=== PATIENT | male | born 1960 | race African-American/Black ===

== ENCOUNTER 2018-10-27 20:02 | Inpatient (IN) | payer OTHER ==
[2018-10-27] MEDS ORDERED: NA CHLORIDE 0.9% 1,000 ML ONE (20:39)
[2018-10-27] MEDS ORDERED: CEFTRIAXONE/SWI 1gm 1 GM/10 ML SYR ONE (20:52)
[2018-10-27 21:05] LABS: Urine Blood 2+ (NEG); Urine Glucose NEGATIVE (NEG); Urine Protein TRACE (NEG)
[2018-10-27 21:12] LABS: Absolute Monocytes 1.3 K/uL (0.1-1.3); Absolute Neutrophil 8.2 K/uL (1.8-8.0); Basophils % 0.1 % (0-1.3); Eosinophils % 0.3 % (0-4.4); Hematocrit 44.2 % (39.6-49.0); Lymphocytes % 48.3 % (15.3-44.8); MPV 9.4 fL (7.6-11.3); Monocytes % 7.1 % (3.3-12.3); RBC Red Blood Cell Count 4.84 M/uL (4.33-5.43)
[2018-10-27] MEDS ORDERED: THIAMINE 200 MG/2 ML INJ ONE (21:14)
[2018-10-27 21:20] LABS: Barbiturates NEGATIVE (NEGATIVE); Benzodiazepines NEGATIVE (NEGATIVE); Cocaine NEGATIVE (NEGATIVE); METHAMPHETAM NEGATIVE (NEGATIVE); Methadone NEGATIVE (NEGATIVE); Opiates NEGATIVE (NEGATIVE); Phencyclidine NEGATIVE (NEGATIVE); THC Cannibis NEGATIVE (NEGATIVE)
[2018-10-27 21:30] LABS: Protime INR 1.02
[2018-10-27] MEDS ORDERED: IPRATROPIUM BROM 0.5MG/2.5ML ONE (21:34)
[2018-10-27] MEDS ORDERED: ALBUTEROL 2.5 MG/3 ML NEB SOL ONE (21:34)
[2018-10-27] MEDS ORDERED: FAMOTIDINE 20 MG/2 ML VIAL IV ONE (21:34)
[2018-10-27] MEDS ORDERED: METHYLPREDNISOLONE 125 MG INJ ONE (21:34)
--- NOTE | 2018-10-27 21:54 | RAD REPORT ---
EXAM DESCRIPTION: CT - Head C Spine Cap Wo Con - 10/27/2018 9:16 pm TECHNIQUE: Computed axial tomography of the head and cervical spine was obtained. Coronal and sagitt al reconstruction was performed Computed axial tomography of the chest, abdomen and pelvis was obtained. Contrast was not requested. All CT scans are performed using dose optimization technique as appropriate and may include automated exposure control or mA/KV adjustment according to patient size. CLINICAL HISTORY: Head and neck injury with chest and abdominal pain status post fall COMPARISON: None FINDINGS: An intracranial bleed is not seen. The ventricles are normal in caliber. An extra-axial fluid collection is not noted. . Fluid within the sinuses/mastoids is not seen. A cervical fracture is not seen. No dislocation is noted. The evaluation of mediastinum, celestino, vessels, solid organs and bowel are limited secondary to the lac k of contrast administration. A mediastinal hematoma is not noted. A pleural effusion is not seen. A lung contusion is not present. A 9 millimeter right upper lobe opacity abuts the pleura. 5 millimeter left lung nodule is partially calcified probably representing a granuloma. Old fracture involves the right posterior twelfth rib The liver,spleen, pancreas,kidneys and bladder do not demonstrate a traumatic injury. 3 centimeter left adrenal mass contains areas of increased density. Right kidney is absent. Rhoades catheter is present within the bladder 11 millimeter right thyroid nodule IMPRESSION: 1. No acute intracranial abnormality is seen. 2. A cervical fracture is not visualized. If the patient continues have symptoms to suggest intracran ial/spinal cord pathology MRI be recommended 3. No traumatic abnormality involving the chest 4. 3 centimeter left adrenal mass contains areas of increased density. This could represent hemorrhag e, an adenoma or less likely malignancy. MRI of the adrenal glands is recommended 5. 9 millimeter right upper lobe opacity probably either represents scarring. A mass is less likely. A followup unenhanced CT chest in 3 months is recommended to assess stability 6. 11 millimeter right thyroid nodule
--- NOTE | 2018-10-27 21:56 | RAD REPORT ---
EXAM DESCRIPTION: Ar Single View10/27/2018 9:01 pm CLINICAL HISTORY: Cough COMPARISON: none FINDINGS: Calcified granulomas present left lung. Lungs are hyperaerated. The lungs appear clear of acute infiltrate. The heart is normal size IMPRESSION: No acute abnormalities displayed
[2018-10-27 21:57] LABS: Blood Morphology Comment NOT SEEN (NOT SEEN); Platelet Estimate ADEQ
[2018-10-27 22:05] LABS: ALT/SGPT 16 U/L (12-78); AST/SGOT 4 U/L (15-37); Albumin 3.9 g/dL (3.4-5.0); Alkaline Phosphatase 102 U/L (45-117); BUN Blood Urea Nitrogen 203 mg/dL (7-18); Bicarbonate 15 mmol/L (21-32); Bilirubin Direct 0.2 mg/dL (0-0.2); Bilirubin Total 0.5 mg/dL (0.2-1.0); Glucose Level 108 mg/dL (74-106); Lipase 451 U/L (73-393); Magnesium 3.4 mg/dL (1.8-2.4); NT PRO-BNP 240 pg/mL (<125); Potassium 5.5 mmol/L (3.5-5.1); Protein, Total 8.1 g/dL (6.4-8.2); Sodium Level 122 mmol/L (136-145); Troponin (Emerg Dept Use Only) < 0.02 ng/mL (0.0-0.045)
--- NOTE | 2018-10-27 22:17 | ER ---
Nurse's Notes [facility] Name: Flex Hopkins Jr Age: 58 yrs Sex: Male : 1960 Arrival Date: 10/27/2018 Time: 20:06 Bed 3 Private MD: Diagnosis: Acute kidney failure;Hypo-osmolality and hyponatremia;Hyperkalemia;Chronic obstructive pulmonary disease, unspecified;Fever, unspecified Presentation: 10/27 20:24 Presenting complaint: Patient states: "I'm having a hard time breathing. I am also jd3 feeling dizzy for 3 days now. I fell yesterday and hit my head. I also had a 101 fever yesterday morning with chills.". Transition of care: patient was not received from another setting of care. Onset of symptoms was October 24, 2018. Risk Assessment: Do you want to hurt yourself or someone else? Patient reports no desire to harm self or others. Initial Sepsis Screen: Does the patient meet any 2 criteria? RR > 20 per min. Systolic BP < 90 mmHg. Does the patient have a suspected source of infection? No. Patient's initial sepsis screen is negative. Care prior to arrival: None. 20:24 Method Of Arrival: Wheelchair jd3 20:24 Acuity: ROSALBA 2 jd3 Historical: - Allergies: 20:30 Ritalin; jd3 - Home Meds: 20:30 Lisinopril Oral [Active]; Metformin Oral [Active]; jd3 - PMHx: 20:30 Hypertension; Diabetes - NIDDM; jd3 - PSHx: 20:30 Lithotripsy; jd3 - Immunization history:: Adult Immunizations unknown. - Social history:: Smoking status: Patient uses tobacco products, denies chronic smoking, but will smoke occasionally. - Ebola Screening: : Patient negative for fever greater than or equal to 101.5 degrees Fahrenheit, and additional compatible Ebola Virus Disease symptoms. Screenin/09 00:45 Abuse screen: Denies threats or abuse. Denies injuries from another. Nutritional tl1 screening: No deficits noted. Tuberculosis screening: No symptoms or risk factors identified. Fall Risk IV access (20 points). Assessment: 10/27 21:54 General: Appears in no apparent distress. Behavior is calm, cooperative, appropriate tl1 for age. Pain: Complains of pain in generalized. Neuro: Level of Consciousness is awake, alert, obeys commands, Oriented to person, place, time, situation, Moves all extremities. Cardiovascular: Denies chest pain. Respiratory: Airway is patent Trachea midline Respiratory effort is even, unlabored, Breath sounds are clear bilaterally. Respiratory: Reports shortness of breath at rest cough that is. GI: Abdomen is non-distended, Bowel sounds present X 4 quads. Abd is soft and non tender X 4 quads. : No signs and/or symptoms were reported regarding the genitourinary system. EENT: No signs and/or symptoms were reported regarding the EENT system. Derm: No signs and/or symptoms reported regarding the dermatologic system. Vital Signs: 20:30 BP 84 / 56; Pulse 83; Resp 22 S; Temp 97.5(O); Pulse Ox 98% on R/A; Weight 81.65 kg jd3 (R); Height 6 ft. 1 in. (185.42 cm) (R); Pain 8/10; 21:09 BP 91 / 68; Pulse 73; Resp 16; Pulse Ox 100% ; tl1 21:53 BP 94 / 54; Pulse 72; Resp 22; Pulse Ox 100% on R/A; Pain 0/10; tl1 23:00 BP 96 / 56; Pulse 94; Resp 20; Temp 98.3(O); Pulse Ox 100% on R/A; lp1 23:43 BP 100 / 55; Pulse 88; Resp 14; Pulse Ox 100% on R/A; Pain 0/10; tl1 10/28 00:41 BP 102 / 58; Pulse 99; Resp 17; Temp 98.3; Pulse Ox 99% on R/A; Pain 0/10; tl1 01:31 BP 102 / 59; Pulse 83; Resp 17; Pulse Ox 98% on R/A; Pain 0/10; tl1 10/27 20:30 Body Mass Index 23.75 (81.65 kg, 185.42 cm) jd3 ED Course: 10/27 20:06 Patient arrived in ED. al2 20:28 Triage completed. jd3 20:30 Regan Gonsales MD is Attending Physician. landy 20:30 Missed attempt(s): 20 gauge in right antecubital area. ca1 20:33 Arm band placed on. EKG completed in triage. Results shown to . jd3 20:33 Patient has correct armband on for positive identification. Placed in gown. Bed in low tl1 position. Call light in reach. Side rails up X2. Adult w/ patient. athletic monitor on. Pulse ox on. NIBP on. Warm blanket given. 20:35 Inserted saline lock: 20 gauge in left antecubital area, using aseptic technique. Blood lp1 collected. By MYRNA Salinas tech. 20:45 Missed attempt(s): 20 gauge in right forearm. lp1 20:[address] via stretcher. sj 20:48 Rhoades cath inserted, using sterile technique, 16 Fr., returned dayanara urine. Patient ca1 tolerated well. 20:50 Inserted saline lock: 22 gauge in right antecubital area, using aseptic technique. lp1 Blood collected. By BRISEIDA Ibrahim. 20:58 X-ray completed. Portable x-ray completed in exam room. Patient tolerated procedure bb2 well. 20:59 XRAY Chest (1 view) In Process Unspecified. EDMS 21:16 CT Traumagram (Head C Spine CAP wo con) In Process Unspecified. EDMS 21:18 CT completed. Patient tolerated procedure well. Patient moved back from MS. wy 21:22 Alexandria Crowley RN is Primary Nurse. tl1 22:13 Shruthi Mistry MD is Hospitalizing Provider. [facility] 10/28 00:48 No provider procedures requiring assistance completed. Patient admitted, IV remains in tl1 place. Administered Medications: Discontinued: NS 0.9% 1000 ml IV at 125 ml/hr continuous 10/27 20:40 Drug: NS 0.9% 1000 ml Route: IV; Rate: 1 bolus; Site: left antecubital; tl1 22:31 Follow up: IV Status: Completed infusion; IV Intake: 1000ml lp1 20:54 Drug: Rocephin - (cefTRIAXone) 1 grams Route: IVPB; Infused Over: 30 mins; Site: left tl1 antecubital; 23:50 Follow up: IV Status: Completed infusion tl1 21:05 Drug: Thiamine 100 mg Route: IV; Rate: bolus; Site: left antecubital; tl1 21:10 Follow up: IV Status: Completed infusion tl1 21:31 Drug: Pepcid 20 mg Route: IVP; Infused Over: 2 mins; Site: left antecubital; tl1 22:32 Follow up: Response: No adverse reaction lp1 21:32 Drug: SOLU-Medrol 125 mg Route: IVP; Infused Over: 2 mins; Site: left antecubital; tl1 22:31 Follow up: Response: No adverse reaction lp1 21:32 Drug: Albuterol - atroVENT (3:1) (2.5 mg - 0.5 mg) 3 ml Route: Nebulizer; tl1 22:32 Follow up: Response: No adverse reaction lp1 22:36 Drug: Zosyn 2.25 grams Route: IVPB; Infused Over: 60 mins; Site: right antecubital; tl1 23:09 Follow up: IV Status: Completed infusion lp1 22:37 Drug: NS 0.9% 1000 ml Route: IV; Rate: 125 ml/hr; Site: right antecubital; 1 10/28 02:03 Follow up: IV Status: Completed infusion [facility] 10/27 23:17 Drug: NS 0.45 % 1000 ml Route: IV; Rate: 100 ml/hr; Site: right antecubital; [facility] 10/28 00:49 Follow up: IV Status: Infusion continued upon admission [facility] 10/27 23:18 Not Given (unavailable): Kayexalate 30 grams PO once 1 Intake: 22:31 IV: 1000ml; Total: 1000ml. [facility] Outcome: 22:16 Decision to Hospitalize by Provider. [facility] 10/28 00:48 Admitted to Tele accompanied by nurse, via stretcher, with chart, Report called to tl1 Kandis GOINS Condition: stable Instructed on the need for admit. 02:02 Patient left the ED. 1 Signatures: Dispatcher [employer] EDRegan Murillo MD MD cha Jones, Susan sj Pena, Laura, RN RN lp1 Alexandria Crowley RN RN tl1 Car Esteves Jonathon, RN RN Randa Talbert Angelica al2 Acob, Cheryl RN RN ca1
--- NOTE | 2018-10-27 22:18 | EDPHYS ---
Physician Documentation [facility] Name: Flex Hopkins Jr Age: 58 yrs Sex: Male : 1960 Arrival Date: 10/27/2018 Time: 20:06 Bed 3 Private MD: ED Physician Regan Gonsales HPI: 10/27 20:34 This 58 yrs old Black Male presents to ER via Wheelchair with complaints of Fall landy Injury, Dizziness. 20:34 Details of fall: The patient fell from an upright position. Onset: The symptoms/episode landy began/occurred 1 day(s) ago. Associated injuries: The patient sustained unknown, pt is altered. Severity of symptoms: At their worst the symptoms were mild, moderate, in the emergency department the symptoms are unchanged. The patient has not experienced similar symptoms in the past. Historical: - Allergies: 20:30 Ritalin; jd3 - Home Meds: 20:30 Lisinopril Oral [Active]; Metformin Oral [Active]; jd3 - PMHx: 20:30 Hypertension; Diabetes - NIDDM; jd3 - PSHx: 20:30 Lithotripsy; jd3 - Immunization history:: Adult Immunizations unknown. - Social history:: Smoking status: Patient uses tobacco products, denies chronic smoking, but will smoke occasionally. - Ebola Screening: : Patient negative for fever greater than or equal to 101.5 degrees Fahrenheit, and additional compatible Ebola Virus Disease symptoms. ROS: 20:35 Eyes: Negative for injury, pain, redness, and discharge, ENT: Negative for injury, landy pain, and discharge, Neck: Negative for injury, pain, and swelling, Cardiovascular: Negative for chest pain, palpitations, and edema, Abdomen/GI: Negative for abdominal pain, nausea, vomiting, diarrhea, and constipation, Back: Negative for injury and pain, : Negative for injury, bleeding, discharge, and swelling, MS/Extremity: Negative for injury and deformity, Skin: Negative for injury, rash, and discoloration, Psych: Negative for depression, anxiety, suicide ideation, homicidal ideation, and hallucinations, Allergy/Immunology: Negative for hives, rash, and allergies, Endocrine: Negative for neck swelling, polydipsia, polyuria, polyphagia, and marked weight changes, Hematologic/Lymphatic: Negative for swollen nodes, abnormal bleeding, and unusual bruising. 20:35 Constitutional: Positive for body aches, malaise, poor PO intake. 20:35 Respiratory: Positive for shortness of breath. 20:35 Neuro: Positive for altered mental status, weakness. Exam: 20:35 Head/Face: Normocephalic, atraumatic. Eyes: Pupils equal round and reactive to light, landy extra-ocular motions intact. Lids and lashes normal. Conjunctiva and sclera are non-icteric and not injected. Cornea within normal limits. Periorbital areas with no swelling, redness, or edema. ENT: Nares patent. No nasal discharge, no septal abnormalities noted. Tympanic membranes are normal and external auditory canals are clear. Oropharynx with no redness, swelling, or masses, exudates, or evidence of obstruction, uvula midline. Mucous membranes moist. Neck: Trachea midline, no thyromegaly or masses palpated, and no cervical lymphadenopathy. Supple, full range of motion without nuchal rigidity, or vertebral point tenderness. No Meningismus. Chest/axilla: Normal chest wall appearance and motion. Nontender with no deformity. No lesions are appreciated. Cardiovascular: Regular rate and rhythm with a normal S1 and S2. No gallops, murmurs, or rubs. Normal PMI, no JVD. No pulse deficits. Respiratory: Lungs have equal breath sounds bilaterally, clear to auscultation and percussion. No rales, rhonchi or wheezes noted. No increased work of breathing, no retractions or nasal flaring. Abdomen/GI: Soft, non-tender, with normal bowel sounds. No distension or tympany. No guarding or rebound. No evidence of tenderness throughout. Back: No spinal tenderness. No costovertebral tenderness. Full range of motion. Skin: Warm, dry with normal turgor. Normal color with no rashes, no lesions, and no evidence of cellulitis. MS/ Extremity: Pulses equal, no cyanosis. Neurovascular intact. Full, normal range of motion. Psych: Awake, alert, with orientation to person, place and time. Behavior, mood, and affect are within normal limits. 20:35 Constitutional: The patient appears in obvious distress, mildly distressed, moderately distressed. 20:35 Respiratory: the patient does not display signs of respiratory distress, Respirations: normal, no acute changes, Breath sounds: are clear throughout, Respiratory rate: 22 21:39 Musculoskeletal/extremity: ROM: no acute changes, intact in all extremities, full landy active range of motion, full passive range of motion, Circulation is intact in all extremities. Pulses: are normal with no appreciated deficits, Sensation intact. Compartment Syndrome exam of affected extremity: is normal. DVT Exam: no pain, no swelling, no tenderness, negative Homans' sign noted on exam, no appreciated bluish discoloration, no erythema, no increased warmth. Vital Signs: 20:30 BP 84 / 56; Pulse 83; Resp 22 S; Temp 97.5(O); Pulse Ox 98% on R/A; Weight 81.65 kg jd3 (R); Height 6 ft. 1 in. (185.42 cm) (R); Pain 8/10; 21:09 BP 91 / 68; Pulse 73; Resp 16; Pulse Ox 100% ; tl1 21:53 BP 94 / 54; Pulse 72; Resp 22; Pulse Ox 100% on R/A; Pain 0/10; tl1 23:00 BP 96 / 56; Pulse 94; Resp 20; Temp 98.3(O); Pulse Ox 100% on R/A; lp1 23:43 BP 100 / 55; Pulse 88; Resp 14; Pulse Ox 100% on R/A; Pain 0/10; tl1 10/28 00:41 BP 102 / 58; Pulse 99; Resp 17; Temp 98.3; Pulse Ox 99% on R/A; Pain 0/10; tl1 01:31 BP 102 / 59; Pulse 83; Resp 17; Pulse Ox 98% on R/A; Pain 0/10; tl1 10/27 20:30 Body Mass Index 23.75 (81.65 kg, 185.42 cm) jd3 MDM: 10/27 20:30 Patient medically screened. [facility] 20:36 Data reviewed: vital signs, nurses notes, lab test result(s), EKG, radiologic studies, [facility] CT scan, plain films. 10/27 20:33 Order name: Basic Metabolic Panel; Complete Time: 22:49 [facility] 10/27 20:33 Order name: CBC with Diff; Complete Time: 22:49 [facility] 10/27 20:33 Order name: LFT's; Complete Time: 22:49 [facility] 10/27 20:33 Order name: Magnesium; Complete Time: 22:49 [facility] 10/27 20:33 Order name: NT PRO-BNP; Complete Time: 22:49 [facility] 10/27 20:33 Order name: PT-INR; Complete Time: 22:49 [facility] 10/27 20:33 Order name: Troponin (emerg Dept Use Only); Complete Time: 22:49 [facility] 10/27 20:33 Order name: Lipase; Complete Time: 22:49 [facility] 10/27 20:33 Order name: Blood Culture Adult (2) [facility] 10/27 20:33 Order name: Procalcitonin; Complete Time: 21:43 [facility] 10/27 20:33 Order name: Urine Culture [facility] 10/27 20:33 Order name: UDS; Complete Time: 21:24 [facility] 10/27 20:34 Order name: Lactate; Complete Time: 21:38 [facility] 10/27 20:37 Order name: ABG [facility] 10/27 21:00 Order name: Urine Dipstick--Ancillary (enter results) ar5 10/27 21:54 Order name: Manual Differential; Complete Time: 22:49 [facility] 10/27 22:12 Order name: Urine Osmolality [facility] 10/27 22:12 Order name: Urine Sodium Random; Complete Time: 22:49 [facility] 10/27 22:12 Order name: Osmolality, Serum [facility] 10/27 22:12 Order name: Urine Potassium Random; Complete Time: 22:49 [facility] 10/27 22:12 Order name: Uric Acid; Complete Time: 22:49 [facility] 10/27 22:17 Order name: CK; Complete Time: 22:49 [facility] 10/27 22:17 Order name: Ckmb; Complete Time: 22:49 [facility] 10/27 22:28 Order name: Cortisol [facility] 10/27 22:28 Order name: Hepatitis B Surface Antibody [facility] 10/27 22:28 Order name: Hepatitis B Surface Ab,Quant [facility] 10/27 22:28 Order name: Hep B Surface AG w/ Confirm [facility] 10/27 22:28 Order name: Hepatitis B Core Ab, Total [facility] 10/27 22:28 Order name: Hepatitis C RNA, Quant (PCR) [facility] 10/27 22:28 Order name: UR POTASSIUM [facility] 10/27 20:33 Order name: XRAY Chest (1 view); Complete Time: 22:02 [facility] 10/27 20:33 Order name: EKG; Complete Time: 20:44 [facility] 10/27 20:33 Order name: Cardiac monitoring; Complete Time: 20:40 [facility] 10/27 20:33 Order name: EKG - Nurse/Tech; Complete Time: 20:40 [facility] 10/27 20:33 Order name: IV Saline Lock; Complete Time: 20:41 [facility] 10/27 20:33 Order name: Labs collected and sent; Complete Time: 20:41 [facility] 10/27 20:33 Order name: O2 Per Protocol; Complete Time: 20:41 [facility] 10/27 20:33 Order name: O2 Sat Monitoring; Complete Time: 21:06 [facility] 10/27 20:33 Order name: Urine Dipstick-Ancillary (obtain specimen); Complete Time: 21:05 [facility] 10/27 20:33 Order name: CT Traumagram (Head C Spine CAP wo con); Complete Time: 22:02 [facility] 10/27 22:28 Order name: UR SODIUM [facility] 10/27 22:28 Order name: Osmolality, Urine [facility] 10/27 22:28 Order name: Ur Protein [facility] 10/27 22:28 Order name: PTH Intact [facility] 10/27 22:28 Order name: Thyroid Stimulating Hormone [facility] 10/27 22:28 Order name: Urinalysis [facility] 10/27 22:28 Order name: Renal Panel [facility] 10/27 22:28 Order name: Renal Panel [facility] 10/27 22:28 Order name: Renal Panel [facility] 10/27 22:29 Order name: Renal Panel [facility] 10/27 22:29 Order name: Renal Panel [facility] 10/27 22:29 Order name: Renal Panel [facility] 10/27 20:33 Order name: Rhoades; Complete Time: 21:05 [facility] 10/27 20:34 Order name: IV Saline Lock - Large Bore; Complete Time: 20:40 [facility] Administered Medications: Discontinued: NS 0.9% 1000 ml IV at 125 ml/hr continuous 20:40 Drug: NS 0.9% 1000 ml Route: IV; Rate: 1 bolus; Site: left antecubital; tl1 22:31 Follow up: IV Status: Completed infusion; IV Intake: 1000ml lp1 20:54 Drug: Rocephin - (cefTRIAXone) 1 grams Route: IVPB; Infused Over: 30 mins; Site: left tl1 antecubital; 23:50 Follow up: IV Status: Completed infusion tl1 21:05 Drug: Thiamine 100 mg Route: IV; Rate: bolus; Site: left antecubital; tl1 21:10 Follow up: IV Status: Completed infusion tl1 21:31 Drug: Pepcid 20 mg Route: IVP; Infused Over: 2 mins; Site: left antecubital; tl1 22:32 Follow up: Response: No adverse reaction lp1 21:32 Drug: SOLU-Medrol 125 mg Route: IVP; Infused Over: 2 mins; Site: left antecubital; tl1 22:31 Follow up: Response: No adverse reaction lp1 21:32 Drug: Albuterol - atroVENT (3:1) (2.5 mg - 0.5 mg) 3 ml Route: Nebulizer; tl1 22:32 Follow up: Response: No adverse reaction lp1 22:36 Drug: Zosyn 2.25 grams Route: IVPB; Infused Over: 60 mins; Site: right antecubital; tl1 23:09 Follow up: IV Status: Completed infusion lp1 22:37 Drug: NS 0.9% 1000 ml Route: IV; Rate: 125 ml/hr; Site: right antecubital; tl1 10/28 02:03 Follow up: IV Status: Completed infusion tl1 10/27 23:17 Drug: NS 0.45 % 1000 ml Route: IV; Rate: 100 ml/hr; Site: right antecubital; tl1 10/28 00:49 Follow up: IV Status: Infusion continued upon admission tl1 10/27 23:18 Not Given (unavailable): Kayexalate 30 grams PO once tl1 Disposition: 10/27/18 22:16 Hospitalization ordered by Shruthi Mistry for Inpatient Admission. Preliminary diagnosis are Acute kidney failure, Hypo-osmolality and hyponatremia, Hyperkalemia, Chronic obstructive pulmonary disease, unspecified, Fever, unspecified. - Bed requested for Telemetry/MedSurg (Inpatient). - Status is Inpatient Admission. tl1 - Condition is Serious. - Problem is new. - Symptoms are unchanged. UTI on Admission? No Signatures: Dispatcher [employer] EDMS Lupe Ames RN RN mw Anderson, Corey, MD MD cha Lasagna, Tonya, RN RN tl1 Ori Nieves RN RN jd3 Pena, Laura RN lp1 Corrections: (The following items were deleted from the chart) 22:19 22:16 Hospitalization Ordered by Shruthi Mistry MD for Inpatient Admission. Preliminary landy diagnosis is Acute kidney failure; Hypo-osmolality and hyponatremia; Hyperkalemia; Chronic obstructive pulmonary disease, unspecified. Bed requested for Telemetry/MedSurg (Inpatient). Status is Inpatient Admission. Condition is Serious. Problem is new. Symptoms are unchanged. UTI on Admission? No. landy 10/28 00:28 10/27 22:19 10/27/2018 22:16 Hospitalization Ordered by Shruthi Mistry MD for Inpatient mw Admission. Preliminary diagnosis is Acute kidney failure; Hypo-osmolality and hyponatremia; Hyperkalemia; Chronic obstructive pulmonary disease, unspecified; Fever, unspecified. Bed requested for Telemetry/MedSurg (Inpatient). Status is Inpatient Admission. Condition is Serious. Problem is new. Symptoms are unchanged. UTI on Admission? No. landy 10/28 02:02 00:28 10/27/2018 22:16 Hospitalization Ordered by Shruthi Mistry MD for Inpatient tl1 Admission. Preliminary diagnosis is Acute kidney failure; Hypo-osmolality and hyponatremia; Hyperkalemia; Chronic obstructive pulmonary disease, unspecified; Fever, unspecified. Bed requested for Telemetry/MedSurg (Inpatient). Status is Inpatient Admission. Condition is Serious. Problem is new. Symptoms are unchanged. UTI on Admission? No. mw
[2018-10-27 22:37] LABS: Arterial Blood Carboxyhemoglob 0.8 % (0-1.5); Blood Gas Oxyhemoglobin 93.9 % (94-97); Blood O2 Saturation 95.6 % (92-98.5)
[2018-10-27] MEDS ORDERED: PIPER/TAZO/NS 2.25gm 2.25 GM/50 ML BAG ONE (22:37)
[2018-10-27] MEDS ORDERED: NA CHLORIDE 0.9% 1,000 ML IV SCH (23:00)
[2018-10-27] MEDS: NACHLORIDE 0.45% 1,000 ML with NA BICARB 8.4% 75 MEQ IV SCH ×2 (23:00)
[2018-10-27] MEDS ORDERED: NACHLORIDE 0.45% 1,000 ML IV ONE (23:15)
[2018-10-27] MEDS ORDERED: SODIUM BICARB 50 MEQ/50ML VIAL ONE (23:15)
--- NOTE | 2018-10-27 23:17 | P.HP ---
Certification for Inpatient Patient admitted to: Inpatient With expected LOS: >2 Midnights Practitioner: I am a practitioner with admitting privileges, knowledge of patient current condition, hospital course, and medical plan of care. Services: Services provided to patient in accordance with Admission requirements found in Title 42 Section 412.3 of the Code of Federal Regulations Patient History Date of Service: 10/27/18 Reason for admission: acute renal injury History of Present Illness: Mr Hopkins is a 58 years old male with history of HTN, Nephrolithiasis, DM II, who start to feel weak and dizzy about 3 days ago. He has been complainin also of abdominal pain, in the lower area associated with nausea and vomiting. He states having fever. He denied cough or SOB. No chest pain either. In ER lab work was significantly abnormal, he has leukocytosis 18.6K with elevated procalcitonin with normal lactate. Hyperkalemia 5.5, hyponatremia 122, BUN 203, cratinine 19.8. His BP was on the lower side, the patient was alert and oriented without distress. No fever documented. Allergies methylphenidate [From Ritalin] Allergy (Unverified 10/27/18 22:45) Hives/Rash Home medications list reviewed: Yes - Past Medical/Surgical History Diabetic: Yes -: Diabetes mellitus II -: HTN -: nephrolithiasis -: Lithotripsy - Family History Family History: Reviewed- Non-Contributory - Social History CD- Drugs: No Place of Residence: Home Review of Systems 10-point ROS is otherwise unremarkable Physical Examination - Physical Exam General: Alert, In no apparent distress HEENT: Atraumatic, PERRLA, Mucous membr. moist/pink, EOMI, Sclerae nonicteric Neck: Supple, 2+ carotid pulse no bruit, No LAD, Without JVD or thyroid abnormality Respiratory: Clear to auscultation bilaterally, Normal air movement Cardiovascular: Regular rate/rhythm, Normal S1 S2 Gastrointestinal: Normal bowel sounds, Tenderness (tenderness to palpation periumbilical area.) Musculoskeletal: No tenderness Integumentary: No rashes Neurological: Normal speech, Normal strength at 5/5 x4 extr, Normal tone, Normal affect Lymphatics: No axilla or inguinal lymphadenopathy - Studies Laboratory Data (last 24 hrs) 10/27/18 20:35: Uric Acid 9.9 H 10/27/18 20:35: PT 12.0, INR 1.02 10/27/18 20:35: WBC 18.6 H, Hgb 14.8, Hct 44.2, Plt Count 283 10/27/18 20:35: Sodium 122 L, Potassium 5.5 H, BUN 203 H, Creatinine 19.80 H*, Glucose 108 H, Magnesium 3.4 H, Total Bilirubin 0.5, AST 4 L, ALT 16, Alkaline Phosphatase 102, Lipase 451 H Assessment and Plan - Problems (Diagnosis) (1) Acute renal injury Current Visit: Yes Status: Acute (2) Diabetes mellitus Current Visit: Yes Status: Acute Qualifiers: Diabetes mellitus type: type 2 Diabetes mellitus long-term insulin use: without long-term use Diabetes mellitus complication status: with unspecified complications Qualified Code(s): E11.8 - Type 2 diabetes mellitus with unspecified complications (3) HTN (hypertension) Current Visit: Yes Status: Acute Qualifiers: Hypertension type: essential hypertension Qualified Code(s): I10 - Essential (primary) hypertension (4) Volume depletion Current Visit: Yes Status: Acute - Plan The patient will be admitted to the hospital due to acute renal injury in context of severe volume depletion. He has leukocytosis with elevated procalcitonin with no obvious source of infection CT head/c-spine/chest/abd and pelvis shows a 3 cm adrenal mass and a thyroid nodule, otherwise no acute abnormalities. Will continue empiric antibiotic treatment, aggressive fluid replacement, Dr Franklin was consulted already. Hyperkalemia already treated in ED. - Advance Directives Does patient have a Living Will: No Does patient have a Durable POA for Healthcare: No - Code Status/Comfort Care Code Status Assessed: Yes Code Status: Full Code
[2018-10-28] MEDS ORDERED: NA CHLORIDE 0.9% 1,000 ML IV SCH (00:21)
[2018-10-28] MEDS ORDERED: ONDANSETRON 4 MG/2 ML VIAL IV PRN (00:21)
[2018-10-28] MEDS: PIPER/TAZO/NS 2.25gm 2.25 GM/50 ML BAG IVPB SCH ×4 (01:00→16:31)
[2018-10-28] MEDS: TRAMADOL HCL 50 MG TAB PO PRN ×2 (05:35→11:12)
[2018-10-28 05:45] LABS: Urine Appearance CLOUDY; Urine Bilirubin NEGATIVE (NEG); Urine Blood 3+ (NEG); Urine Color YELLOW; Urine Glucose NEGATIVE (NEG); Urine Protein TRACE (NEG); Urine Specific Gravity 1.015 (1.005-1.030); Urine Urobilinogen 0.2 mg/dL (0.2-1.0)
[2018-10-28 05:50] LABS: Urine Microscopic Reflex ORDER UMIC
[2018-10-28 05:55] LABS: Urine Protein/Creatinine Ratio 0.59 ratio (<0.15)
[2018-10-28 06:03] LABS: Urine Amorphous Sediment 1+ /HPF (NONE SEEN); Urine Bacteria <20 /HPF (NONE SEEN); Urine Culture Reflex Order REFLEXED; Urine RBC 20-50 /HPF (NONE SEEN)
[2018-10-28 06:41] LABS: Absolute Lymphocytes (CBC) 7.6 K/uL (0.7-4.9); Absolute Monocytes 0.2 K/uL (0.1-1.3); Absolute Neutrophil 6.2 K/uL (1.8-8.0); Basophils % 0.1 % (0-1.3); Hematocrit 37.8 % (39.6-49.0); Lymphocytes % 54.7 % (15.3-44.8); MPV 9.3 fL (7.6-11.3); Monocytes % 1.1 % (3.3-12.3)
--- NOTE | 2018-10-28 07:16 | EKG ---
Test Date: 2018-10-27 Test Time: 20:28:01 Professor Of Public Administration: MILA MEASUREMENT RESULTS: Intervals: Rate: 149 MO: 154 QRSD: 96 QT: 230 QTc: 362 [place]: P: 88 MO: 154 QRS: 20 T: 79 INTERPRETIVE STATEMENTS: Sinus rhythm Possible Left atrial enlargement Tall, peaked T waves, consider hyperkalemia Abnormal ECG Compared to ECG 10/27/2018 20:26:22 no significant change from previous ECG Electronically Signed On 10-28-18 07:16:35 RIPPLER by Jermaine Chavez
--- NOTE | 2018-10-28 07:17 | EKG ---
Test Date: 2018-10-27 Test Time: 20:26:22 Home Stereo Equipment Installer: MILA MEASUREMENT RESULTS: Intervals: Rate: 148 [place]: 150 QRSD: 100 QT: 238 QTc: 373 [place]: P: 86 [place]: 150 QRS: 24 T: 81 INTERPRETIVE STATEMENTS: Sinus rhythm Tall, peaked T waves, consider hyperkalemia Abnormal ECG No previous ECG available for comparison Electronically Signed On 10-28-18 07:17:25 SUPERVISOR IN CHARGE by Jermaine Chavez
[2018-10-28] MEDS: INSULIN -REGULAR HUMAN 50 UNIT/0.5 ML ML SQ SCH ×4 (07:30→21:00)
[2018-10-28 07:43] LABS: Albumin 3.1 g/dL (3.4-5.0); Phosphorus 10.5 mg/dL (2.5-4.9); Thyroid Stimulating Hormone 0.007 uIU/mL (0.360-3.740)
[2018-10-28 07:50] LABS: Potassium 6.8 mmol/L (3.5-5.1)
[2018-10-28] MEDS ORDERED: D50W 25 GM/50 ML SYRINGE IV ONE ×2 (07:54→12:01)
[2018-10-28] MEDS ORDERED: CALCIUM GLUC 10% INJ 4.65 MEQ in NA CHLORIDE 0.9% 100 ML IV ONE (07:54)
[2018-10-28] MEDS ORDERED: ALBUTEROL 2.5 MG/3 ML NEB SOL NEB ONE ×3 (07:54→12:01)
[2018-10-28] MEDS ORDERED: D50W 25 GM/50 ML SYRINGE IV PRN (07:54)
[2018-10-28] MEDS ORDERED: GLUCAGON 1 MG/VIAL IM PRN (07:54)
[2018-10-28] MEDS ORDERED: INSULIN -REGULAR HUMAN 50 UNIT/0.5 ML ML IV ONE ×2 (07:55→12:04)
[2018-10-28] MEDS ORDERED: SODIUM BICARB 50 MEQ/50ML VIAL IV ONE (07:56)
[2018-10-28 08:59] LABS: Blood Morphology Comment NOT SEEN (NOT SEEN); Platelet Estimate ADEQ
[2018-10-28] MEDS: NACHLORIDE 0.45% 1,000 ML with NA BICARB 8.4% 75 MEQ IV SCH ×4 (12:39→22:42)
--- NOTE | 2018-10-28 13:25 | EKG ---
Test Date: 2018-10-28 Test Time: 09:32:38 Cassandra Consultant: ARGELIA MEASUREMENT RESULTS: Intervals: Rate: 106 [place]V: 140 QRSD: 98 QT: 332 QTc: 441 [place]: P: 90 [place]: 140 QRS: 76 T: 89 INTERPRETIVE STATEMENTS: Sinus tachycardia Otherwise normal ECG Compared to ECG 10/27/2018 20:28:01 Sinus rhythm no longer present Electronically Signed On 10-28-18 13:24:40 SIGNAL WIRER by Jermaine Chavez
[2018-10-28] MEDS ORDERED: SOD POLYSTYREN SUL 15 GM/60 ML UCUP PO ONE ×2 (15:53→16:00)
--- NOTE | 2018-10-28 19:26 | PN ---
Date of Progress Note: 10/28/2018 Subjective: The patient is seen and examined. Chart reviewed, and case discussed with RN and Dr. Bates. The patient is a poor historian. Family does not have much more information than he does. The patient is unclear as to why he has only 1 kidney. Records request has been sent off to [facility]. Medications: List reviewed. Physical Examination: Vital Signs: Temperature 97.9, heart rate 65, blood pressure 120/60, respirations 18, O2 of 98% on r oom air. General: Awake, alert, oriented x3. An ill-appearing male, older than stated age. CV: S1, S2. Regular rate and rhythm. Peripheral pulses present. No murmurs. Respiratory: Moving air well bilaterally. No wheezing or stridor. Gastrointestinal: Abdomen is soft, nontender, nondistended. Positive bowel sounds. Extremities: No clubbing or cyanosis. The patient does have some peripheral edema. Neuro: Cranial nerves 2 through 12 intact grossly. No focal neurological deficit. Speech is normal . Skin: No rashes. Normal skin turgor. Laboratory Data: Sodium 126, potassium 6.8, chloride 90, CO2 of 13, BUN 91, creatinine 17.5, glucose 137, serum osmolality 338, calcium 8.3, phosphorus 10.5, albumin 3.1, TSH 0.007, PTH 442. Procalcit onin 0.92. ABG showed acidosis from 10/27/2018, pH 7.24, pCO2 of 25, pO2 of 102, bicarb 10. WBC 14, H and H 13.1 and 37.8, platelets 265, neutrophils 44%, 1% bands. Blood cultures pending. Urine cul ture pending. EKG shows rate of 106, sinus tachycardia, peaked T-waves. Assessment And Plan: A 58-year-old male with: 1.Acute kidney injury, not very responsive to fluid challenge. Nephrology has been consulted. The patient will need to be started on hemodialysis due to electrolyte disturbance. Unclear etiology. Amee miller will obtain records from previous hospitalization at the medical center. 2.Diabetes mellitus type 2 without long-term use of insulin with hyperglycemia. We will continue sl iding scale insulin. 3.Essential hypertension. 4.Volume depletion. 5.Hyperkalemia. We will treat with albuterol, calcium gluconate, dextrose, sodium bicarbonate, and Kayexalate. We will repeat 2 hours post secondary to kidney disease. 6.Hyperphosphatemia. 7.Hypermagnesemia. 8.Neutrophilic leukocytosis, unclear etiology. 9.Incidental finding of an 11-mm right thyroid nodule. We will need a thyroid ultrasound as an outp atient. 10.A 9-mm right upper lobe opacity, likely represents scarring. We will need a followup CT chest in 3 months. 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 We will need o utpatient MRI of the adrenal glands. 12.Status post right nephrectomy. The patient is unable to tell me why he has had a nephrectomy. H e thought that he only had a kidney stone removed. We will follow up on records from previous hospit alization at the [facility]. LETITIA Voice ID: [id number] Report ID: [id number]
[2018-10-29] MEDS: PIPER/TAZO/NS 2.25gm 2.25 GM/50 ML BAG IVPB SCH ×3 (00:20→19:01)
--- NOTE | 2018-10-29 02:18 | CON ---
Date of Consultation: 10/28/2018 Reason For Consultation: Tunneled hemodialysis catheter placement. History Of Present Illness: This is the case of a 58-year-old patient, acute renal failora chong I was asked by the primary doctor for a hemodialysis catheter to receive hemodialysis. The patie nt states feeling weak for the last several days. He mentioned a history of having kidney disease wi th the kidney stones in the past, but cannot give me an accurate information on that. Review of Systems: Ten points otherwise unremarkable. Medical History: Diabetes, hypertension, kidney stones. Past Surgical History: Includes lithotripsy. He does not smoke. He does not drink alcohol. Family History: Noncontributory. Review of Systems: Ten points otherwise unremarkable. Physical Examination: General: The patient is awake and alert. HEENT: Pupils are equal and reactive, anicteric. Neck: Supple. Chest: Clear. Abdomen: Soft and depressible. Extremities: Good capillary refill. Laboratory Data: Blood work shows WBC count of 14 with hemoglobin of 13. INR is 1.02. Potassium is 5.4 with creatinine of 17.5. Assessment: This is a 58-year-old patient with acute renal failure. The patient requested by the pr ary doctor to have a hemodialysis, was came here. I explained to him the benefits, alternatives, a nd risks of HemoSplit hemodialysis catheter with benefits, alternatives, and risks including, but not limited to infection, bleeding, damage to adjacent structures, and anesthesia complication, pneumoth orax, hemothorax, DVTs, HI, and even . He also understands this is temporary catheter. This ma y not relieve any symptoms. He is not sure if he is going to allow hemodialysis yet, so I encouraged him to once again discuss with the primary doctor. If he decides to put a hemodialysis catheter, th en to be n.p.o. after midnight. KARISHMA/RAMSEY Voice ID: [id number] Report ID: [id number]
--- NOTE | 2018-10-29 03:02 | CON ---
NEPHROLOGY CONSULTATION Additional Consulting Physician: Dr. Pierre. Reason For Consultation: Acidosis, hyperkalemia, and elevated BUN and creatinine. History Of Present Illness: This is a 58-year-old gentleman, poor historian. All the information worrell s been obtained from the patient and the by the bedside. The patient has a history apparently f or nephrolithiasis, status post left kidney nephrectomy back in April 2018. According to the patient, the patient does not have other medical disease except hypertension and diabetes, but does not recal l any other kidney disease other than the kidney stone. According to him, he had been checked by [facility] and no chronic kidney disease. No mention for any dialysis. The patient apparently came to the hospital complaining some weakness, abdominal pain, found to have severe acidosis and hyperka lemia with hyponatremia. For that reason, we have been consulted. Rhoades has been inserted. The pat ient was started on aggressive hydration and started on bicarb drip, and we have been consulted. The patient denied taking any nonsteroidal, no IV contrast. As I mentioned, the patient had left nephre ctomy. CT did not show any hydronephrosis. Past Medical History: Includes: 1.Nephrolithiasis, status post left nephrectomy. 2.Hypertension. 3.Diabetes. Social History: Active smoker, denied alcohol, denied drug use. Family History: Positive for diabetes and hypertension. Past Surgical History: Includes nephrectomy. Allergies: TO METHYLPREDNISOLONE. Home Medications: Include tramadol. Current Medications: In the hospital include IV fluid, sodium bicarb, and tramadol. Physical Examination: General: When I saw the patient, the patient was lying in bed. Vital Signs: Blood pressure 112/75, pulse of 78, and afebrile. Chest: Clear to auscultation. Heart: S1, S2. Regular. Abdomen: Soft, nontender. Extremities: No edema. Laboratory Data: Sodium 122, potassium 5.5, bicarb 15, chloride 78, BUN 203, creatinine 19, and calc ium 9.4. Uric acid 9.9. WBC 14, H and H 13.1/37.8; on admission, it was 14.8/44.2, platelet 265. U rinalysis, +3 blood, protein-creatinine 0.59. Assessment And Plan: 1.Renal failure. I look with the pictures that he presented on solitary kidney. Mostly it is on ch ronic kidney disease with a progression complicated with hyponatremia and hyperkalemia. I am going t o go ahead and initiate dialysis. I had long discussion with the patient in the presence of the regarding the need to initiate renal replacement therapy. The patient agreed. We will consult Surg reta for catheter placement and we will start dialysis. 2.Hypertension, currently controlled, optimal. Keep holding all blood pressure medication. 3.Hyperkalemia, secondary to renal failure. We will give the cocktail including albuterol, D50, and we will dialyze the patient on low-potassium bath. 4.High anion gap metabolic acidosis with contraction alkalosis. Given the hyperkalemia, I am going to go ahead and start the patient on the bicarb drip and we will follow up the patient. We will requ est the record from the surgery and from [facility] to have better history for the patient and we will follow up. Case was discussed with Dr. Pierre, agreed on the plan. 5.Hyponatremia secondary to renal failure. We will correct it slowly. We are not going to aim for full correction to utilize the BUN for the correction, asked the patient when he is going to receive the dialysis, and it is going to be overcorrected. I am going to continue on half-normal with the saline and we will follow up. NIKO Voice ID: [id number] Report ID: [id number]
[2018-10-29] MEDS: NACHLORIDE 0.45% 1,000 ML with NA BICARB 8.4% 75 MEQ IV SCH ×6 (07:15→18:00)
[2018-10-29] MEDS: INSULIN -REGULAR HUMAN 50 UNIT/0.5 ML ML SQ SCH ×4 (07:30→21:00)
--- NOTE | 2018-10-29 17:17 | P.PN ---
Date of Service: 10/29/18 ADDENDUM Patient wanting to leave AMA. I counseled him and spoke with his daughter. Patient now changed his mind and wants to stay. Per daughter pt does have hx of psychiatric illness in the past and has been to in psych facility long time ago when daughter was young. She is unaware of his diagnosis.
[2018-10-29 17:40] LABS: Absolute Lymphocytes (CBC) 8.7 K/uL (0.7-4.9); Absolute Monocytes 1.3 K/uL (0.1-1.3); Absolute Neutrophil 5.8 K/uL (1.8-8.0); Basophils % 0.1 % (0-1.3); Eosinophils % 0.6 % (0-4.4); Hematocrit 35.5 % (39.6-49.0); MPV 9.1 fL (7.6-11.3); Monocytes % 8.1 % (3.3-12.3); RBC Red Blood Cell Count 3.91 M/uL (4.33-5.43)
[2018-10-29 18:00] LABS: Phosphorus 7.9 mg/dL (2.5-4.9); Potassium 5.4 mmol/L (3.5-5.1)
[2018-10-29 18:32] LABS: Platelet Estimate ADEQ
[2018-10-29 18:33] LABS: Blood Morphology Comment NOT SEEN (NOT SEEN); Platelets, Giant FEW; Smudge Cells NOTED
--- NOTE | 2018-10-29 19:56 | PN ---
Date of Progress Note: 10/29/2018 History: The patient seen and examined. Chart reviewed and case discussed with RN and Dr. Tamayo. The patient initially refused surgery and then consented, and then again refused surgery. The patient does seem to have some paranoid thoughts such as stating that the nurses are keeping him n.p.o. for their convenience. Does not understand that it is for the procedure. Also stated other unusual statements concerning for possible mental illness. Family member at the bedside has no additional information. We will reach out to family members. Medications: List reviewed. Physical Examination: Vital Signs: Temperature 98.5, heart rate 76, blood pressure 97/54, respirations 16, O2 97% on room air. General: Awake, alert, oriented x3, in some mild distress, appears older than stated age, ill-appearing male. CV: S1, S2. Regular rate and rhythm. Peripheral pulses present. Respiratory: Diminished breath sounds. Some crackles heard. Gastrointestinal: Abdomen is soft, nontender, nondistended. Positive bowel sounds. Extremities: No clubbing, cyanosis. Pedal edema present. Neurologic: Nonfocal. Psych: Mood is anxious. Affect is congruent with mood. Insight and judgment are poor. Laboratory Data: The patient refused labs today after multiple attempts. Blood cultures show no growth to date. Urine culture no growth. Assessment And Plan: A 58-year-old male with: 1. Acute kidney injury. The patient is still making urine. Will need to be started on dialysis, however, has been refusing the procedure for dialysis catheter. Previous records are pending. Nephrology on board. 2. Diabetes mellitus type 2 without long-term use of insulin with hyperglycemia. Continue sliding scale insulin and monitor blood glucose levels. 3. Essential hypertension, stable. Continue home medications. 4. Volume depletion. 5. Hyperkalemia, corrected. However, the patient has been refusing repeat labs. 6. Hyperphosphatemia. 7. Hypomagnesemia. 8. Neutrophilic leukocytosis, improving. 9. Thyroid nodule, 11 mm, on the right. The patient will need outpatient thyroid ultrasound for further evaluation. 10. Right upper lobe lung opacity 9 mm, likely scarring. Repeat CT chest in 3 months. 11. Adrenal mass on the left, 3 cm, likely adenoma, possibly hemorrhage or malignancy. We will need MRI as outpatient. 12. Status post right nephrectomy. On the CT scan, right kidney is absent. We will follow up on records from [facility] , reach out to family members concerning nephrectomy. 13. Gastrointestinal and deep venous thrombosis prophylaxes, addressed. Plan: The patient may have some underlying mental illness. May need family member to further elucidate previous history. Again, the patient was explained that he needs dialysis. Otherwise, he may as a result of electrolyte disturbances and toxic buildup. He seems to understand, however, is contradictory in his actions by his first signing the consent and then refusing to go for surgery. Overall poor prognosis. SA/MODL Voice ID: [id number] Report ID: [id number] SANTY
[2018-10-29] MEDS: RISPERIDONE 0.25 MG TABLET PO SCH ×2 (20:32→21:00)
[2018-10-29] MEDS: QUETIAPINE 25 MG TAB PO SCH ×2 (20:32→21:00)
--- NOTE | 2018-10-29 21:14 | PN ---
Date of Progress Note: 10/29/2018 Diagnosis: Renal failure. History Of Present Illness: Mr. Hopkins is a 58-year-old patient, his primary doctors and his renal doc tor encouraged him to have dialysis. We went twice today to trying take him down to surgery to have the hemodialysis catheter placed. He started to give some theories about he is missing the kidney an d before somebody removed the kidneys from him and then give some other theories about how he does no t trust insurances and then first he did not sign a consent. 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 He understands he i s putting his life at risk, life-threatening condition from renal failure. His doctors have been the re several times. Also the nurse managers and everybody else trying to making him understand. We al so encouraged him to bring his daughter, so we can have a little conversation with the family member to try and to explain to them the importance and see how we can let him see the importance of this he modialysis catheter. He wants to eat, so they have to see him. We going to try to see if he let us put this catheter tomorrow once again home hopefully to helping improve his condition. HM/MODL Voice ID: [id number] Report ID: [id number]
[2018-10-29] MEDS: D5 0.45 NS 1,000 ML IV SCH (22:00)
[2018-10-30] MEDS: PIPER/TAZO/NS 2.25gm 2.25 GM/50 ML BAG IVPB SCH ×3 (00:18→17:03)
--- NOTE | 2018-10-30 02:37 | PN ---
Date of Progress Note: 10/29/2018 Subjective: The patient was admitted with acute kidney injury with a known history of chronic kidney disease. The patient supposed to have PermCath placement and initiate dialysis. The patient change d his mind and refused. Physical Examination: Vital Signs: Blood pressure 115/57, pulse of 76, afebrile. The patient had good urine output of 2500 . Chest: Clear to auscultation. Heart: S1, S2, regular. Abdomen: Soft, nontender. Extremities: No edema. Laboratory Data: WBC 15.9, H and H 12/35.5, platelets 254. Sodium 140, potassium 5.4, bicarb 25, BU N 150, creatinine 9.5, calcium 8.7, phosphorus 7.9, albumin of 3. Workup is still pending. Current Medications: Include bicarb drip, Zosyn, tramadol. Assessment And Plan: 1.Acute kidney injury, nonoliguric with hyperkalemia with acidosis. I am going to go ahead and disc ontinue bicarb drip. Start the patient on D5 half and we will monitor the patient. 2.I had a long discussion with the patient. The patient still refused dialysis. We spoke to the [facility], was supposed to come and convince the patient. We will continue hydration. 3.Acidosis, recovered. Discontinue bicarb drip. 4.Hyperkalemia secondary to renal failure, recovered. Continue hydration. 5.History of nephrectomy. Still waiting for the record. Again, the patient not reasonable. Family understands that the patient will need dialysis, but still refusing for the time being. 6.Urinary tract infection. Continue current antibiotic. JAX/RAMSEY Voice ID: [id number] Report ID: [id number]
[2018-10-30] MEDS: D5 0.45 NS 1,000 ML IV SCH ×2 (06:23→18:00)
[2018-10-30] MEDS: INSULIN -REGULAR HUMAN 50 UNIT/0.5 ML ML SQ SCH ×4 (07:30→21:00)
[2018-10-30] MEDS: HEPARIN 5000 UNIT/ML 1 ML VIAL ONE ×4 (12:25→13:22)
[2018-10-30] MEDS ORDERED: NA CHLORIDE 0.9% 100 ML IV ONE (12:30)
[2018-10-30] MEDS ORDERED: LIDOCAINE 1% MPF 5 ML VIAL ONE (12:31)
[2018-10-30] MEDS ORDERED: LIDOCAINE 1% MPF 30 ML VIAL ONE (12:34)
[2018-10-30] MEDS ORDERED: NS 0.9% VIAL 10 ML ONE (12:39)
[2018-10-30] MEDS ORDERED: NA CHLORIDE 0.9% 500 ML ONE (12:43)
[2018-10-30] MEDS ORDERED: PROPOFOL 200 MG/20 ML VIAL IV ONE (12:48)
[2018-10-30] MEDS ORDERED: LIDOCAINE 2% MPF 5 ML VIAL ONE (12:48)
[2018-10-30] MEDS ORDERED: FENTANYL CITR 100 MCG/2 ML ONE (12:49)
[2018-10-30] MEDS ORDERED: MIDAZOLAM HCL 2 MG/2 ML INJ ONE (12:49)
[2018-10-30] MEDS ORDERED: SOD POLYSTYREN SUL 15 GM/60 ML UCUP PO SCH (13:00)
[2018-10-30] MEDS: SOD POLYSTYREN SUL 15 GM/60 ML UCUP PO SCH ×2 (13:00→19:00)
[2018-10-30] MEDS ORDERED: Phenylephrine HCl 10 MG/ML 1 ML VIAL ONE (13:17)
--- NOTE | 2018-10-30 13:29 | P.BOP ---
Preoperative diagnosis: renal failure Postoperative diagnosis: same Primary procedure: 1. Placement of Hemodialysis tunneled hemosplit catheter Secondary procedure: 2. Interpretation of fluoroscopy Other procedure(s): 3. right neck u/s for catheter placement Specimen: none Findings: see dictation Anesthesia: General Complications: None Implants: hemosplit HD cath Transferred to: Recovery Room Condition: Good
--- NOTE | 2018-10-30 13:55 | RAD REPORT ---
EXAM DESCRIPTION: RAD - Chest Single View - 10/30/2018 1:48 pm CLINICAL HISTORY: Device placement central venous line placement COMPARISON: October 27, 2018 FINDINGS: A PICC line has been inserted with its tip in the distal superior vena cava. The lungs appear clear of acute infiltrate. The heart is normal size. IMPRESSION: Central venous catheter has been placed into the mid superior vena cava without pneumoth orax
--- NOTE | 2018-10-30 13:57 | RAD REPORT ---
EXAM DESCRIPTION: RAD - Fluoroscopy <1 Hour - 10/30/2018 1:50 pm CLINICAL HISTORY: Device placement central venous catheter placement FINDINGS: A central venous catheter was placed into the superior vena cava. Nine fluoroscopic spot i mages are submitted. The examination was performed by Dr. Tamayo Fluoroscopy time 0.4 minutes
[2018-10-30 15:25] LABS: Rheumatoid Factor NEG (NEG)
[2018-10-30 17:31] LABS: Hepatitis C Virus RNA (PCR)log <1.18 log IU/mL
[2018-10-30] MEDS: RISPERIDONE 0.25 MG TABLET PO SCH (20:45)
[2018-10-30] MEDS: QUETIAPINE 25 MG TAB PO SCH (20:45)
[2018-10-30 21:12] LABS: HBsAG Nonreactive (Nonreactive)
[2018-10-30 21:22] LABS: Absolute Lymphocytes (CBC) 7.3 K/uL (0.7-4.9); Absolute Monocytes 1.4 K/uL (0.1-1.3); Absolute Neutrophil 7.3 K/uL (1.8-8.0); Basophils % 0.4 % (0-1.3); Eosinophils % 1.4 % (0-4.4); Hematocrit 33.6 % (39.6-49.0); Lymphocytes % 44.8 % (15.3-44.8); MPV 8.7 fL (7.6-11.3); Monocytes % 8.5 % (3.3-12.3); RBC Red Blood Cell Count 3.58 M/uL (4.33-5.43)
[2018-10-30 21:33] LABS: Albumin 2.8 g/dL (3.4-5.0); Phosphorus 4.9 mg/dL (2.5-4.9); Potassium 4.4 mmol/L (3.5-5.1)
--- NOTE | 2018-10-30 22:25 | PN ---
Date of Progress Note: 10/30/2018 Subjective: The patient is seen and examined. Chart reviewed and case discussed with RN and Dr. Dutton. The patient finally agreed to go to procedure for dialysis catheter placement. Medications: List reviewed. Physical Examination: Vital Signs: Temperature 97.2, heart rate 68, blood pressure 114/69, respirations 16, and O2 95% on room air. General: Awake, alert, oriented x3, in no acute distress. CV: S1, S2. Regular rate and rhythm. No murmurs. Respiratory: Moving air well bilaterally. No wheezing. Gastrointestinal: Abdomen is soft, nontender, and nondistended. Positive bowel sounds. Extremities: No clubbing, cyanosis. Trace pedal edema. Neurologic: Nonfocal. Laboratory Data: The patient refused labs. Accu-Cheks ranged from 111 to 133. Blood cultures, no growth to date. Urine culture, no growth final. Chest x- ray shows central venous catheter placed into the mid superior vena cava without pneumothorax. Assessment And Plan: A 58-year-old male with: 1. Acute kidney injury. The patient finally agreed for dialysis catheter placement. We will likely need dialysis. Nephrology on board. The patient has been refusing labs. 2. Diabetes mellitus type 2 without long-term use of insulin with hyperglycemia. We will continue sliding scale insulin. Monitor blood glucose levels. 3. Noncompliance, intentional. 4. Essential hypertension, stable. 5. Hyperkalemia, corrected. 6. Hyperphosphatemia. 7. Hypermagnesemia. 8. Neutrophilic leukocytosis, improving. 9. Thyroid nodule, 11 mm on the right. We will need outpatient thyroid ultrasound. 10. Right upper lobe lung opacity 9 mm, likely scarring. Repeat CT chest in 3 months. 11. 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 We will need MRI to rule out malignancy. 12. Status post right nephrectomy. On CT scan, right kidney is absent. Follow up on previous hospitalization records from the medical center. 13. The patient is exhibiting paranoid behavior, may have paranoid schizophrenia per daughter. The patient has been institutionalized previously when his daughter was younger. This is several years ago. The is , therefore, unable to be reached. No other information is present until we will get previous records. The patient did improve with a trial of risperidone. We will continue with risperidone for now. 14. Gastrointestinal and deep venous thrombosis prophylaxis addressed. Plan: Anticipate initialization of dialysis. /RAMSEY Voice ID: [id number] Report ID: [id number] MTDD
--- NOTE | 2018-10-30 23:56 | P.PN ---
Subjective Date of Service: 10/31/18 Chief Complaint: acute renal injury Subjective: No new changes Pt agreed for HD will dc IVF gentle HD today with 250ml blood flow to reduce risk of disequilibrium syndrome HD tomorrow again f/u serology w/u Physical Examination - Vital Signs Temperature: 99.6 F Blood Pressure: 127/71 Pulse: 85 Respirations: 19 Pulse Ox (%): 96 - Physical Exam General: Alert, Mild distress HEENT: Atraumatic Neck: Supple, Without JVD or thyroid abnormality Respiratory: Clear to auscultation bilaterally, Normal air movement Cardiovascular: No edema, Normal pulses, Regular rate/rhythm, Normal S1 S2 Gastrointestinal: Normal bowel sounds, Soft and benign Assessment And Plan - Current Problems (Diagnosis) (1) Acute renal injury Onset Date: 10/28/18 Current Visit: Yes Status: Acute (2) Diabetes mellitus Onset Date: 10/28/18 Current Visit: Yes Status: Chronic Qualifiers: Diabetes mellitus type: type 2 Diabetes mellitus long term care social worker insulin use: without long term care social worker use Diabetes mellitus complication status: with unspecified complications Qualified Code(s): E11.8 - Type 2 diabetes mellitus with unspecified complications (3) HTN (hypertension) Onset Date: 10/28/18 Current Visit: Yes Status: Chronic Qualifiers: Hypertension type: essential hypertension Qualified Code(s): I10 - Essential (primary) hypertension - Plan Acute kidney injury, proteinuria and rbc in urine F/U serology w/u HD today and tomorrow UTI Cont abx HTN controlled DM as per primary Hyperkalmia HD today
--- NOTE | 2018-10-31 00:19 | OP ---
Surgeon: Vitaly Tamayo MD Preoperative Diagnosis: Renal failure. Postoperative Diagnosis: Renal failure. Procedures: 1.Placement of hemodialysis tunneled HemoSplit catheter. 2.Interpretation of fluoroscopy. 3.Right neck ultrasound for catheter placement. Anesthesia: General plus local. Implant: HemoSplit hemodialysis catheter. Indications: This is a case of a 58-year-old patient in need of hemodialysis. The last few days, he has been thinking about it. Primary doctor advised him the importance of getting dialysis; and tomala rocha, he decided to sign a consent. So, we booked him in the OR. The benefits, alternatives, and risks were fully explained to him multiple times, which include, but not limited to infection, bleeding, d amage to adjacent structures, anesthesia complications, pneumothorax, hemothorax, cardiac tamponade, DVT, PE, OK, and even . He also understands this may not relieve any symptoms. He might need m ore than one surgical intervention. He understands the importance of keeping this nice and clean and allow only professional to use it. He was also fully explained the importance of removing this as s oon as he finished hemodialysis since it is a temporary catheter. If dialysis will continue indefini tely, then he needs to discuss that with a renal doctor, so, they can send him to do a permanent acce ss. He signed a consent. Description Of Procedure: The patient was brought to the operating room, placed in supine position. Anesthesia was done without complication. A time-out was called. Right neck was prepped and draped and chest in a usual sterile fashion. The patient was placed in Trendelenburg position. We did rig ht neck ultrasound to find the jugular vein to be patent and compressible. We placed a needle in the right internal jugular vein. Guidewire was passed through, got into the superior vena cava using fl uoroscopy. The needle was removed. We created an opening in the right upper chest and tunneled a He moSplit hemodialysis catheter underneath. We proceeded to place dilators under direct visualization of fluoroscopy through the guidewire and then the introducer sheath. The guidewire was removed. Cat heter was placed in. Introducer was then peeled off, and this was done under fluoroscopy. The claudio ter seemed to be nice and flushing good. Excellent contour. Excellent backflow and inflow. I then flushed with heparin. Sponge counts and instrument counts were correct. The area was covered with s terile dressings and also 3-0 chromic to close the skin and 3-0 nylon to secure the catheter. The pa tient was sent to recovery in stable condition. A chest x-ray will be ordered stat. KARISHMA/RAMSEY Voice ID: [id number] Report ID: [id number]
[2018-10-31] MEDS: PIPER/TAZO/NS 2.25gm 2.25 GM/50 ML BAG IVPB SCH ×2 (01:00→08:24)
[2018-10-31 06:28] LABS: Absolute Lymphocytes (CBC) 7.7 K/uL (0.7-4.9); Absolute Neutrophil 5.2 K/uL (1.8-8.0); Basophils % 0.4 % (0-1.3); Eosinophils % 2.7 % (0-4.4); Hematocrit 34.7 % (39.6-49.0); Lymphocytes % 53.4 % (15.3-44.8); MPV 9.1 fL (7.6-11.3); Monocytes % 7.2 % (3.3-12.3); RBC Red Blood Cell Count 3.74 M/uL (4.33-5.43)
[2018-10-31 06:32] LABS: Albumin 2.9 g/dL (3.4-5.0); Phosphorus 4.2 mg/dL (2.5-4.9); Potassium 4.9 mmol/L (3.5-5.1)
[2018-10-31] MEDS: INSULIN -REGULAR HUMAN 50 UNIT/0.5 ML ML SQ SCH ×4 (07:30→21:31)
[2018-10-31 07:52] LABS: Blood Morphology Comment NOT SEEN (NOT SEEN); Platelet Estimate ADEQ; Urine White Blood Cell Casts OK
[2018-10-31] MEDS ORDERED: NA CHLORIDE 0.9% 1,000 ML IV PRN (11:47)
[2018-10-31] MEDS ORDERED: ALBUMIN HUMAN 25% 50 ML IV SCH (12:00)
--- NOTE | 2018-10-31 15:38 | PN ---
Date of Progress Note: 10/31/2018 Subjective: The patient is doing better. More awake, more cooperative. The patient was started by the hospitalist with antidepressant in schizophrenia. The patient had dialysis yesterday and today. We managed to remove 2 L. Physical Examination: Vital Signs: Blood pressure 129/63, pulse of 78, afebrile. The patient still has good urine output of 2700. Chest: Clear to auscultation. Heart: S1, S2, regular. Abdomen: Soft, nontender. Extremities: No edema. Laboratory Data: WBC 14.4, H and H 11.3/34.7, platelets 225. Sodium 144, potassium 4.9, bicarb 25, BUN 50, creatinine 3.4. This is re-dialysis. Calcium 8.4. Phosphorus 4.2. PTH of 442. Urine drug screen negative, serology still pending. Current Medications: 1.Zosyn. 2.Heparin. 3.Zofran. 4.IV fluid. 5.Tramadol. Assessment And Plan: 1.Acute kidney injury, unknown etiology with hyperkalemia and acidosis, hyponatremia. Continue dial ysis. We will switch the patient to Friday, Friday, Friday. 2.Hypertension, controlled, optimal. Continue current treatment. 3.Urinary tract infection. Continue current treatment. We will follow up. If the culture showing no growth, I am going to go ahead and downgrade his Zosyn to oral Levaquin. 4.Acidosis, resolved. 5.Hyperkalemia, resolved. 6.Hyponatremia secondary to renal failure, resolved. 7.Secondary hyperparathyroidism. I am going to start the patient on calcitriol and we will follow jessica calix MA/RAMSEY Voice ID: [id number] Report ID: [id number]
[2018-10-31] MEDS: CALCITROL 0.25 MCG CAP PO SCH (15:41)
[2018-10-31] MEDS: TRAMADOL HCL 50 MG TAB PO PRN (16:23)
[2018-10-31] MEDS: ENOXAPARIN 30 MG/0.3 ML SQ SCH (17:15)
--- NOTE | 2018-10-31 18:08 | PN ---
Date of Progress Note: 10/31/2018 Subjective: The patient was seen and examined. Chart reviewed and case discussed with RN and Dr. Bates. The patient finally agreed to get his hemodialysis catheter placed yesterday and went for di alysis [id number]. Feels better, much more calm and relaxed. No acute events overnight. Medications: List reviewed. Physical Examination: Vital Signs: Temperature 99, heart rate 78, blood pressure 129/63, respirations 16, O2 97% on room a ir. General: Awake, alert, oriented x3, not in any acute distress. CV: S1, S2. Regular rate and rhythm. No murmurs. Respiratory: Moving air well bilaterally. No wheezing. Gastrointestinal: Abdomen is soft, nontender, nondistended. Positive bowel sounds. Extremities: No clubbing, cyanosis, or edema. Neurologic: Nonfocal. Laboratory Data: Sodium 144, potassium 4.9, chloride 113, CO2 of 25, BUN 50, creatinine 3.48, glucos e 110, calcium 8.4, phosphorus 4.2, albumin 2.9. WBC 14.4, H and H are 11.3 and 34.7, neutrophils 36 %, lymphocytes 53%. Blood cultures, no growth to date. Urine culture, no growth, final. Assessment And Plan: A 58-year-old male with: 1.Acute kidney injury, improved with dialysis. Continue with dialysis per Nephrology. Appreciate t input. 2.Hyperkalemia, corrected. 3.Diabetes mellitus type 2 with long-term use of insulin with hyperglycemia. Continue sliding scale insulin and monitor Accu-Cheks. 4.Noncompliance, intentional. 5.Essential hypertension, stable. 6.Hyperphosphatemia, corrected. 7.Hypomagnesemia, corrected. We will continue to monitor. 8.Leukocytosis, lymphocytic, improving. Blood cultures are negative. No acute source of infection. 9.Thyroid nodule, 11 mm, on the right. We will need outpatient thyroid ultrasound. 10.Right upper lobe lung opacity, 9 mm, likely scarring. Repeat CT chest in 3 months. 11.Renal mass on the left, 3 cm, likely adenoma. We will need MRI to rule out malignancy. 12.Status post right nephrectomy, awaiting previous hospitalization records for reason for nephrecto my. 13.Likely paranoid schizophrenia, improved with risperidone. We will continue Seroquel. 14.Gastrointestinal and deep venous thrombosis prophylaxis addressed. Lovenox renally dosed. Plan: Continue dialysis, will need to be set up as outpatient. However, if continues to improve, pranav y not require further dialysis. Continue IV antibiotics. /RAMSEY Voice ID: [id number] Report ID: [id number]
[2018-10-31] MEDS: RISPERIDONE 0.25 MG TABLET PO SCH (21:30)
[2018-10-31] MEDS: QUETIAPINE 25 MG TAB PO SCH (21:30)
[2018-11-01 03:18] VITALS: BMI 19.1
[2018-11-01 06:16] LABS: Absolute Lymphocytes (CBC) 7.6 K/uL (0.7-4.9); Absolute Monocytes 1.1 K/uL (0.1-1.3); Absolute Neutrophil 4.5 K/uL (1.8-8.0); Basophils % 0.3 % (0-1.3); Eosinophils % 2.8 % (0-4.4); Hematocrit 33.7 % (39.6-49.0); Lymphocytes % 55.8 % (15.3-44.8); MPV 8.9 fL (7.6-11.3); Monocytes % 8.1 % (3.3-12.3)
[2018-11-01 06:34] LABS: Albumin 2.8 g/dL (3.4-5.0); Phosphorus 3.9 mg/dL (2.5-4.9); Potassium 4.3 mmol/L (3.5-5.1)
[2018-11-01 06:35] LABS: Blood Morphology Comment NOT SEEN (NOT SEEN); Platelet Estimate ADEQ; Urine White Blood Cell Casts OK
[2018-11-01] MEDS: INSULIN -REGULAR HUMAN 50 UNIT/0.5 ML ML SQ SCH ×4 (07:30→21:00)
[2018-11-01] MEDS: levoFLOXacin 250 MG TAB PO SCH (08:49)
[2018-11-01] MEDS ORDERED: RISPERIDONE 0.25 MG TABLET PO ONE (10:40)
[2018-11-01] MEDS: ENOXAPARIN 30 MG/0.3 ML SQ SCH (17:09)
--- NOTE | 2018-11-01 20:51 | PN ---
Date of Progress Note: 11/01/2018 Subjective: The patient is doing better. Rhoades has been removed. The patient is voiding, but he do es not measure. Physical Examination: Vital Signs: Blood pressure 124/75, pulse of 86, T-max 100.6. Chest: Clear to auscultation. Heart: S1, S2 regular. Abdomen: Soft, nontender. Extremities: No edema. Laboratory Data: WBC 13.6, H and H 11.3/33.7, platelets of 171. Sodium 147, potassium 4.3, bicarb 2 5, BUN 29, creatinine 2.5, calcium 8.2, phosphorus 3.9, PTH of 442. Serology still pending. Current Medications: The patient is on include Levaquin 250, Lovenox, risperidone, insulin, tramadol , calcitriol. Assessment And Plan: 1.Acute kidney injury, unknown baseline, nonoliguric. It looks the patient may show some recovery. I can follow up the chemistry tomorrow before I start another session of dialysis, and we will follo w up. 2.Hypertension, controlled, optimal. Continue current treatment. 3.Secondary hyperparathyroidism, stable. Continue calcitriol. 4.Deconditioning. Continue PT, OT. JAX/RAMSEY Voice ID: [id number] Report ID: [id number]
[2018-11-01] MEDS ORDERED: RISPERIDONE 0.25 MG TABLET PO SCH (21:00)
[2018-11-01] MEDS: TRAMADOL HCL 50 MG TAB PO PRN (21:10)
[2018-11-01] MEDS: QUETIAPINE 25 MG TAB PO SCH (21:10)
--- NOTE | 2018-11-01 21:42 | PN ---
Date of Progress Note: 11/01/2018 Subjective: The patient seen and examined. Chart reviewed and case discussed with RN and Dr. Julio bryan. The patient still having episodes of agitation, however, improved. The patient ordered [employer] last night. Blood sugar spiked up to 400. The patient was counseled. The patient reluctant to be examined today, however, did participate. Medications: List reviewed. Physical Examination: Vital Signs: Temperature 98.8, heart rate 78, blood pressure 132/73, respirations 16, O2 99% on room air. General: Awake, alert, oriented x3. In no acute distress. CV: S1, S2. No murmurs. Peripheral pulses present. Respiratory: Moving air well bilaterally. Gastrointestinal: Abdomen is soft, nontender, nondistended. Positive bowel sounds. Extremities: No clubbing, cyanosis, edema. Neurologic: Nonfocal. Psych: Mood is agitated. Affect is congruent with mood. Insight and judgment are poor. Laboratory Data: Sodium 147, potassium 4.3, chloride 119, CO2 25, BUN 29, creatinine 2.57, glucose 1 10, calcium 8.2, phosphorus 3.9, albumin 2.8. WBC 13.6, H and H 11.3 and 33.7, platelets 171, lympho cytes 55%. Assessment: A 58-year-old male with. 1.Acute kidney injury, improving with dialysis. 2.Hyperkalemia, corrected. 3.Diabetes mellitus type 2 with long-term use of insulin with hyperglycemia, uncontrolled. The liz ent is noncompliant with his diet. We will adjust insulin sliding scale and continue Accu-Cheks. 4.Noncompliance, intentional. 5.Essential hypertension, stable. 6.Hyperphosphatemia, corrected. 7.Hypomagnesemia, corrected. We will monitor. 8.Lymphocytic leukocytosis, unclear etiology. No acute source of infection is apparent. Blood cult ures are negative. We will continue to monitor. White blood cell count is trending down. 9.Thyroid nodule, 11 mm, on the right. We will need outpatient thyroid ultrasound. 10.Right upper lobe lung opacity, 9 mm, likely scarring. Repeat CT chest in 3 months. 11.Renal mass on the left, 3 cm, likely adenoma. We will need MRI to rule out malignancy as an outp atient. 12.Status post right nephrectomy, unclear reason for nephrectomy. Records requested from [facility]. 13.Underlying psychiatric disorder, likely paranoid schizophrenia. We will increase dose of risperi done. Continue Seroquel. 14.Gastrointestinal and deep venous thrombosis prophylaxis with Lovenox renally dosed. Plan: Dialysis in a.m. depending on kidney function, which has surprisingly continued to improve, ma y or may not require dialysis. We will follow up with Nephrology recommendations. /RAMSEY Voice ID: [id number] Report ID: [id number]
[2018-11-02 02:12] LABS: Anti-Cardiolipin IgA Antibody <11 APL (<=11)
[2018-11-02] MEDS: INSULIN -REGULAR HUMAN 50 UNIT/0.5 ML ML SQ SCH ×4 (07:30→20:04)
[2018-11-02] MEDS: levoFLOXacin 250 MG TAB PO SCH (09:07)
[2018-11-02 09:22] LABS: Albumin 2.8 g/dL (3.4-5.0); Phosphorus 3.1 mg/dL (2.5-4.9); Potassium 4.2 mmol/L (3.5-5.1)
[2018-11-02 09:23] LABS: Absolute Lymphocytes (CBC) 7.1 K/uL (0.7-4.9); Absolute Monocytes 0.8 K/uL (0.1-1.3); Absolute Neutrophil 5.8 K/uL (1.8-8.0); Basophils % 0.3 % (0-1.3); Eosinophils % 2.8 % (0-4.4); Hematocrit 31.7 % (39.6-49.0); Lymphocytes % 50.2 % (15.3-44.8); MPV 8.6 fL (7.6-11.3); Monocytes % 5.6 % (3.3-12.3); RBC Red Blood Cell Count 3.39 M/uL (4.33-5.43)
[2018-11-02] MEDS ORDERED: HALOPERIDOL LACT 5 MG/ML INJ IV PRN (11:10)
[2018-11-02] MEDS: ACETAMINOPHEN 500 MG TAB PO PRN (12:34)
--- NOTE | 2018-11-02 13:27 | RAD REPORT ---
EXAM DESCRIPTION: CT - Head Brain Wo Cont - 11/02/2018 1:07 pm CLINICAL HISTORY: Headache and headache COMPARISON: October 25, 2018 TECHNIQUE: Computed axial tomography of the head was obtained. IV contrast was not requested. All CT scans are performed using dose optimization technique as appropriate and may include automated exposure control or mA/KV adjustment according to patient size. FINDINGS: An intracranial bleed is not seen . The ventricles are normal in caliber. No extra-axial fluid collection is noted. Fluid within the sinuses/ mastoids is not seen. IMPRESSION: No acute intracranial abnormality is seen. If patient's symptoms persist MRI of the bra in would be recommended.
[2018-11-02] MEDS: D5W 1,000 ML IV SCH (14:15)
[2018-11-02] MEDS: CALCITROL 0.25 MCG CAP PO SCH (14:16)
[2018-11-02 16:08] LABS: HIV 1/2 Antibody Diff Not indicated.; HIV AG/AB 4TH GEN Non-reactive (Non-reactive)
--- NOTE | 2018-11-02 17:58 | PN ---
Date of Progress Note: 11/02/2018 Subjective: The patient is seen and examined. Chart reviewed and case discussed with RN and Dr. Rebekah villeda. The patient improved significantly with dialysis. Continues to be agitated and going downsta irs to the ER, ordering pizza, not following his diet, agitated and uncooperative. Medications: List reviewed. Physical Examination: Vital Signs: Temperature 101.1, heart rate 103, blood pressure 110/59, respirations 16, O2 97% on ro om air. General: Awake, alert, oriented x3, in no acute distress. Somewhat ill-appearing male. CV: S1, S2. Regular rate and rhythm. Peripheral pulses present. Respiratory: Moving air well bilaterally. No wheezing. Gastrointestinal: Abdomen is soft, nontender, nondistended. Positive bowel sounds. Extremities: No clubbing, cyanosis, or edema. Neuro: Nonfocal. Laboratory Data: Sodium 147, potassium 4.2, chloride 117, CO2 23, BUN 22, creatinine 2.18, glucose 1 27, calcium 8.1, phosphorus 3.1, albumin 2.8. Procalcitonin and lactate are pending. WBC 14.2, H an d H 10.3 and 31.7, neutrophils 41%. Blood cultures, no growth. Final urine culture, no growth. Assessment And Plan: A 58-year-old male with: 1.Acute kidney injury, improved with dialysis. We will touch-base with Nephrology regarding outpati ent dialysis set up. Kidney function has responded well. 2.Hyperkalemia, corrected. 3.Agitation. 4.Diabetes mellitus type 2 with long-term use of insulin with hyperglycemia, uncontrolled. Continue Accu-Chek and sliding scale insulin. 5.Noncompliance, intentional. 6.Essential hypertension, stable. 7.Hypophosphatemia, corrected. 8.Hypomagnesemia, replaced. We will continue to monitor. 9.Lymphocytic leukocytosis, unclear etiology. The patient continued to spike fever, is flagging for sepsis. We will obtain lactate and procalcitonin. Continue antibiotics. Cultures are negative to date. Need Infectious Disease consultation. 10.Thyroid nodule, 11 mm, on the right. We will need outpatient thyroid ultrasound. 11.Right upper lobe lung opacity, 9 mm, likely scarring. Repeat CT chest in 3 months. 12.Renal mass in the left kidney, 3 cm, likely adenoma. We will need MRI to rule out malignancy. 13.Status post right nephrectomy. Records requested from [facility]. 14.Underlying psychiatric disorder, perhaps paranoid schizophrenia. He was responding well to rispe ridone. We will increase dose and we will increase dose of Seroquel as well. 15.Gastrointestinal and deep venous thrombosis prophylaxis with Lovenox, renally dosed. Plan: Continue dialysis. May need to be set up for dialysis depending on what Nephrology recommends as an outpatient. We will obtain a CT scan of the head and Neurology evaluation for altered mental status. SA/MODL Voice ID: [id number] Report ID: [id number]
[2018-11-02] MEDS: ENOXAPARIN 30 MG/0.3 ML SQ SCH (18:00)
[2018-11-02] MEDS ORDERED: RISPERIDONE 1 MG TABLET PO SCH (21:00)
[2018-11-02] MEDS: QUETIAPINE 100MG TAB PO SCH (21:11)
[2018-11-02] MEDS: DIPHENHYDRAMINE 50 MG/ML VIAL IV PRN (21:11)
[2018-11-03] MEDS: D5W 1,000 ML IV SCH ×2 (00:11→13:50)
--- NOTE | 2018-11-03 03:05 | PN ---
Date of Progress Note: 11/02/2018 Chief Complaint: Kidney failure. History Of Present Illness: The patient is started on dialysis. Azotemia is improving. The patient denies PND or orthopnea. Physical Examination: Lungs: Clear to auscultation bilaterally. Heart: S1 and S2. Abdomen: Soft and benign. Extremities: No edema. Vital Signs: Blood pressure 122/70, heart rate 63, and temperature 100.6. Laboratory Work: Blood work showed creatinine 2.5. Sodium 137, potassium 4.3, bicarbonate 25. Impression And Plan: 1.Acute kidney injury, nonoliguric. The patient may need dialysis. Currently, he is in recovery ph ase. Dialysis on hold today. 2.Hypertension. Blood pressure controlled. 3.Secondary hyperparathyroidism. Monitor phosphorus level. Adjust binders as needed. EB/MODL Voice ID: [id number] Report ID: [id number]
[2018-11-03 06:46] LABS: Absolute Lymphocytes (CBC) 6.6 K/uL (0.7-4.9); Absolute Monocytes 0.8 K/uL (0.1-1.3); Absolute Neutrophil 5.7 K/uL (1.8-8.0); Basophils % 0.3 % (0-1.3); Eosinophils % 2.4 % (0-4.4); Hematocrit 29.2 % (39.6-49.0); MPV 8.4 fL (7.6-11.3); Monocytes % 6.2 % (3.3-12.3); RBC Red Blood Cell Count 3.14 M/uL (4.33-5.43)
[2018-11-03] MEDS: INSULIN -REGULAR HUMAN 50 UNIT/0.5 ML ML SQ SCH ×4 (07:30→20:23)
[2018-11-03] MEDS: levoFLOXacin 250 MG TAB PO SCH (08:55)
[2018-11-03 09:40] LABS: Albumin 2.9 g/dL (3.4-5.0)
--- NOTE | 2018-11-03 13:05 | P.PN ---
Subjective Date of Service: 11/03/18 Chief Complaint: acute renal injury Subjective: Improving Cr improving to 2.0 today serology W/U so far -ve if cr cont to improve by tomorrow, then will cnsdier removing dialysis catheter and discharge the Pt Physical Examination - Vital Signs Temperature: 100.5 F Blood Pressure: 140/56 Pulse: 88 Respirations: 18 Pulse Ox (%): 98 - Physical Exam General: Alert, In no apparent distress HEENT: Atraumatic Neck: Supple, Without JVD or thyroid abnormality Respiratory: Clear to auscultation bilaterally Cardiovascular: No edema, Normal pulses, Regular rate/rhythm, Normal S1 S2, No gallops, No rubs, No murmurs Gastrointestinal: Normal bowel sounds, Soft and benign Assessment And Plan - Current Problems (Diagnosis) (1) Acute renal injury Onset Date: 10/28/18 Current Visit: Yes Status: Acute (2) Diabetes mellitus Onset Date: 10/28/18 Current Visit: Yes Status: Chronic Qualifiers: Diabetes mellitus type: type 2 Diabetes mellitus exterminator termite insulin use: without exterminator termite use Diabetes mellitus complication status: with unspecified complications Qualified Code(s): E11.8 - Type 2 diabetes mellitus with unspecified complications (3) HTN (hypertension) Onset Date: 10/28/18 Current Visit: Yes Status: Chronic Qualifiers: Hypertension type: essential hypertension Qualified Code(s): I10 - Essential (primary) hypertension - Plan Acute kidney injury, possible ATN had HD x2 Cr improving now proteinuria and rbc in urine Rf -ve, C3,C4 and hep panel -ve F/u SPEP, SOLOMON, ANCA and HIV if cr cont teresa improve then will consider removing HD cath by tomorrow and dc Pt UTI Cont abx HTN controlled DM as per primary
[2018-11-03] MEDS: ACETAMINOPHEN 500 MG TAB PO PRN (13:51)
[2018-11-03] MEDS: ENOXAPARIN 30 MG/0.3 ML SQ SCH (16:40)
--- NOTE | 2018-11-03 17:16 | P.PN ---
Subjective Date of Service: 11/03/18 Chief Complaint: acute renal injury Subjective: No C/O voiced, Improving Patient seen and examined at bedside. Partner at bedside. Chart reviewed and case discussed with Dr. Warner and the nursing staff. Patient AAOx3 in bed, in no acute distress. He would like to go home. Slightly agitated but was able to listen and answer questions appropriately. Review of Systems 10-point ROS is otherwise unremarkable Physical Examination - Vital Signs Temperature: 99.4 F Blood Pressure: 122/75 Pulse: 88 Respirations: 18 Pulse Ox (%): 98 - Physical Exam General: Alert, In no apparent distress, Oriented x3 HEENT: Atraumatic, PERRLA, EOMI Neck: Supple, JVD not distended Respiratory: Clear to auscultation bilaterally, Normal air movement Cardiovascular: Regular rate/rhythm, Normal S1 S2 Gastrointestinal: Normal bowel sounds, No tenderness Musculoskeletal: No tenderness Integumentary: No rashes Neurological: Normal speech, Normal tone, Normal affect Lymphatics: No axilla or inguinal lymphadenopathy Assessment And Plan - Plan A 58-year-old male with: 1. Acute kidney injury, improved with dialysis. Kidney function has responded well. Per nephrology, monitor patient and creatinine levels 1 more night. If continue to improve, will add 2. Hyperkalemia, corrected. 3. Agitation: Improved. CT head negative for acute abnormalities. 4. Diabetes mellitus type 2 with long-term use of insulin with hyperglycemia, uncontrolled. Continue Accu-Chek and sliding scale insulin. 5. Noncompliance, intentional. 6. Essential hypertension, stable. 7. Hypophosphatemia, corrected. 8. Hypomagnesemia, replaced. We will continue to monitor. 9. Lymphocytic leukocytosis, unclear etiology. Fever curve and leuckocytosis improving. 10. Thyroid nodule, 11 mm, on the right. We will need outpatient thyroid ultrasound. 11. Right upper lobe lung opacity, 9 mm, likely scarring. Repeat CT chest in 3 months. 12. 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 We will need MRI to rule out malignancy as outpatient. 13. Status post right nephrectomy. Records requested from [facility]. 14. Underlying psychiatric disorder, perhaps paranoid schizophrenia. He was responding well to risperidone. We will increase dose and we will increase dose of Seroquel as well. 15. Gastrointestinal and deep venous thrombosis prophylaxis with Lovenox, renally dosed. Plan: Follow up creatinine in the am, if stable, neprho to remove cath and likely discharge home tomorrow. Discharge Plan: Home Plan to discharge in: 24 Hours
[2018-11-03 19:04] LABS: P-ANCA Anti-Myeloperoxidase Ab <1.0 AI (<1.0)
[2018-11-03] MEDS: DIPHENHYDRAMINE 50 MG/ML VIAL IV PRN (21:09)
[2018-11-03] MEDS: QUETIAPINE 100MG TAB PO SCH (21:10)
--- NOTE | 2018-11-03 23:08 | CON ---
Date of Consultation: 11/02/2018 Consultation called because of altered mental status. History Of Present Illness: Mr. Hopkins is a 58-year-old patient admitted with an acute renal failure. Creatinine was elevated to 19.8 on admission and BUN also elevated at 203. The patient was hydrated and his diabetes and hypertension addressed. He was admitted on the . I saw him today on the . At the time of my evaluation, he actually returned to a baseline level of functioning about a da y and a half ago and his laboratory studies did show significant improvement of the creatinine now to 2.04. BUN was normal at 16. Again the patient was interacting normally, following commands appropr iately, aware of the hospital and the year and the month. He followed all commands appropriately. Gera miller did have a head CT scan done on yesterday. The study showed no acute ischemic or hemorrhagic gurrola e. This was unremarkable. Past Medical History: As indicated above plus diabetes mellitus type 2, hypertension. Surgical History: Nephrolithiasis and lithotripsy. Allergies: METHYLPHENIDATE. Family History: Noncontributory. Social History: The patient resides at home and denied any recent alcohol or IV drug use. Current Medications: Lovenox 30 mg subcutaneously daily, calcitriol 0.25 mcg every 48 hours, Levaqui n 250 mg daily, Seroquel 100 mg at bedtime, tramadol 50 mg 6 hours as needed. Physical Examination: Vital Signs: Blood pressure 122/75, pulse 88, respiratory rate 18, temperature 99.4. General: Mr. oHpkins is resting comfortably in bed, IVs are connected. He is in no acute distress. HEENT: He is normocephalic, atraumatic. Sclerae are anicteric. Oropharynx is moist and pink. Neck: Supple. Chest: Clear. Heart: Regular. Extremities: Show no edema or cyanosis. Neurological: Oriented to situation and place. Follows commands appropriately. Cranial nerves show no focal deficits. On his motor examination, he has no weakness in upper or lower extremities. Seam Rubber rdination is slow, but intact in upper and lower extremities. Sensory exam shows stocking-glove loss to light touch and pinprick. Reflexes 1+ symmetric in upper extremities and 0 at the heels, 1 at th e patellae. The patient otherwise has no focal deficits. Laboratory Data: Labs have been reviewed. Assessment: Mr. Hopkins is a 58-year-old patient with resolved renal or uremic encephalopathy with a po tential toxic component. He does not require further neurological workup. Plan: The patient may continue with his hydration and management per primary team including antibiot ics and he after discharge may follow up in clinic with Dr. Reyes 1 month later. ANNA/RAMSEY Voice ID: [id number] Report ID: [id number]
[2018-11-04] MEDS: ACETAMINOPHEN 500 MG TAB PO PRN (01:29)
[2018-11-04] MEDS: D5W 1,000 ML IV SCH (06:44)
[2018-11-04] MEDS: INSULIN -REGULAR HUMAN 50 UNIT/0.5 ML ML SQ SCH ×4 (07:30→19:54)
[2018-11-04] MEDS: levoFLOXacin 250 MG TAB PO SCH (08:20)
--- NOTE | 2018-11-04 16:14 | PN ---
Date of Progress Note: 11/04/2018 NEPHROLOGY FOLLOWUP Subjective: The patient feeling better. Physical Examination: Vital Signs: Blood pressure 123/68, pulse of 74, afebrile. Chest: Clear to auscultation. Heart: S1, S2 regular. Abdomen: Soft and nontender. Extremities: No edema. Laboratory Data: WBC 13.5, H and H 9.6/29.2, platelets of 181. Sodium 143, potassium 4, bicarb 24, BUN 16, creatinine down to 2, GFR of 8.41, calcium 8.5, phosphorus of 3, albumin 2.9. PTH 442. Current Medications: The patient on include: 1.Levaquin 250. 2.Diphenhydramine. 3.Lovenox. 4.Haloperidol. 5.Quetiapine. 6.Zofran. 7.Tramadol. Assessment And Plan: 1.Acute kidney injury secondary to prerenal, recovered, resolved. I do not see the need for dialysi s anymore. We will go ahead and discontinue PermCath and we will monitor the patient. 2.Hypertension, controlled, optimal. Continue to monitor. 3.Hypernatremia, resolved. 4.Secondary hyperparathyroidism. Continue current treatment. The patient cleared from the renal standpoint for discharge planning to follow up in 2-3 weeks. NIKO Voice ID: [id number] Report ID: [id number]
[2018-11-04] MEDS: ENOXAPARIN 30 MG/0.3 ML SQ SCH (16:54)
[2018-11-04] MEDS: CALCITROL 0.25 MCG CAP PO SCH (16:54)
--- NOTE | 2018-11-04 17:31 | P.DS ---
Admission Date: 10/27/18 Discharge Date: 11/04/18 Disposition: ROUTINE DISCHARGE Discharge Condition: GOOD Reason for Admission: acute renal injury Consultations: , nephrology Dr. Tamayo, general surgery Dr. Reyes, neurology Procedures: 10/30/2018: Hemodialysis, tunnel catheter placement Brief History of Present Illness: Mr Hopkins is a 58 years old male with history of HTN, Nephrolithiasis, DM II, who start to feel weak and dizzy about 3 days ago. He has been complainin also of abdominal pain, in the lower area associated with nausea and vomiting. He states having fever. He denied cough or SOB. No chest pain either. In ER lab work was significantly abnormal, he has leukocytosis 18.6K with elevated procalcitonin with normal lactate. Hyperkalemia 5.5, hyponatremia 122, BUN 203, cratinine 19.8. His BP was on the lower side, the patient was alert and oriented without distress. No fever documented. Hospital Course: Patient was admitted for acute kidney injury. Nephrology was consulted, tunneled hemodialysis catheter was placed and patient underwent emergent hemodialysis. Since then, patient's kidney function has responded well. Prior to discharge, creatinine was 2.04 from the initial 19. Patient symptomatically improved. He was then cleared for discharge from nephrology standpoint without the need of outpatient dialysis. Tunneled HD catheter will be removed prior to discharge. Patient also had agitation which improved. Imaging negative for any acute abnormalities. Thyroid nodule, 11 mm, on the right. We will need outpatient thyroid ultrasound. Right upper lobe lung opacity, 9 mm, likely scarring. Repeat CT chest in 3 months. 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 We will need MRI to rule out malignancy as outpatient. Patient with a possible underlying psychiatric disorder. He will need outpatient follow up, referred to his primary care. Patient otherwise remained stable throughout the stay. No medication changes made on discharge. Patient was instructed to follow with Nephrology in 2 weeks. And his primary care physician in 1 week. Vital Signs/Physical Exam: Temp Pulse Resp BP Pulse Ox 98.9 F 76 16 123/68 100 11/04/18 12:00 11/04/18 12:00 11/04/18 12:00 11/04/18 12:00 11/04/18 12:00 General: Alert, In no apparent distress, Oriented x3 HEENT: Atraumatic, PERRLA, EOMI Neck: Supple, JVD not distended Respiratory: Clear to auscultation bilaterally, Normal air movement Cardiovascular: Regular rate/rhythm, Normal S1 S2 Gastrointestinal: Normal bowel sounds, No tenderness Musculoskeletal: No tenderness Integumentary: No rashes Neurological: Normal speech, Normal tone, Normal affect Lymphatics: No axilla or inguinal lymphadenopathy Laboratory Data at Discharge: WBC 13.5 K/uL (4.3-10.9) H 11/03/18 06:09 Hgb 9.6 g/dL (13.6-17.9) L 11/03/18 06:09 Hct 29.2 % (39.6-49.0) L 11/03/18 06:09 Plt Count 181 K/uL (152-406) 11/03/18 06:09 PT 12.0 SECONDS (9.5-12.5) 10/27/18 20:35 INR 1.02 10/27/18 20:35 Sodium 143 mmol/L (136-145) 11/03/18 09:15 Potassium 4.0 mmol/L (3.5-5.1) 11/03/18 09:15 BUN 16 mg/dL (7-18) 11/03/18 09:15 Creatinine 2.04 mg/dL (0.55-1.3) H 11/03/18 09:15 Glucose 116 mg/dL (74-106) H 11/03/18 09:15 Uric Acid 9.9 mg/dL (3.5-7.2) H 10/27/18 20:35 Phosphorus 3.0 mg/dL (2.5-4.9) 11/03/18 09:15 Magnesium 3.4 mg/dL (1.8-2.4) H 10/27/18 20:35 Total Bilirubin 0.5 mg/dL (0.2-1.0) 10/27/18 20:35 AST 4 U/L (15-37) L 10/27/18 20:35 ALT 16 U/L (12-78) 10/27/18 20:35 Alkaline Phosphatase 102 U/L (45-117) 10/27/18 20:35 Lipase 451 U/L (73-393) H 10/27/18 20:35 Patient Discharge Instructions: Please follow up with the primary care physician in 1 week. Please follow up with the bilingual teacher in 2 weeks. Information provided to you. Please follow up with neurology in 1 month. Information provided to you. Please return to the emergency room for worsening symptoms. No new medications or medication changes at Diet: Renal Activity: Ad blair Followup: Deon Franklin MD [ACTIVE - CAN ADMIT] - 1-2 Weeks (Please call to make an appointment) Shreyas Reyes MD [ASSOCIATE-ACTIVE - CAN ADMIT] - 12/07/18 (Please call to make an appointment) Time spent managing pt's care (in minutes): 55
[2018-11-04] MEDS: QUETIAPINE 100MG TAB PO SCH (20:21)
[2018-11-04] MEDS: TRAMADOL HCL 50 MG TAB PO PRN (21:10)
[2018-11-04 22:10] LABS: Albumin, (SPE) 3.4 g/dL (3.8-4.8); Alpha-1-Globulins 0.4 g/dL (0.2-0.3); Alpha-2-Globulins 0.8 g/dL (0.5-0.9); Gamma Globulins 0.6 g/dL (0.8-1.7); INTERPRETATION REPORT
[2018-11-05] MEDS: TRAMADOL HCL 50 MG TAB PO PRN (03:11)
[2018-11-05] MEDS: INSULIN -REGULAR HUMAN 50 UNIT/0.5 ML ML SQ SCH ×2 (07:30→11:30)
[2018-11-05] MEDS ORDERED: levoFLOXacin 500 MG TAB PO SCH (09:00)
--- NOTE | 2018-11-05 09:59 | P.PN ---
Subjective Date of Service: 11/05/18 Chief Complaint: acute renal injury Subjective: Improving No new complaints\ Cr improved can be discharged today after dialysis catheter removal Physical Examination - Vital Signs Temperature: 98.4 F Blood Pressure: 120/71 Pulse: 79 Respirations: 16 Pulse Ox (%): 98 - Physical Exam General: Alert, In no apparent distress HEENT: Atraumatic Neck: Supple, Without JVD or thyroid abnormality Respiratory: Clear to auscultation bilaterally Cardiovascular: No edema, Regular rate/rhythm, Normal S1 S2, No rubs, No murmurs Gastrointestinal: Normal bowel sounds, Soft and benign Assessment And Plan - Current Problems (Diagnosis) (1) Acute renal injury Onset Date: 10/28/18 Current Visit: Yes Status: Acute (2) Diabetes mellitus Onset Date: 10/28/18 Current Visit: Yes Status: Chronic Qualifiers: Diabetes mellitus type: type 2 Diabetes mellitus manager intermediate insulin use: without manager intermediate use Diabetes mellitus complication status: with unspecified complications Qualified Code(s): E11.8 - Type 2 diabetes mellitus with unspecified complications (3) HTN (hypertension) Onset Date: 10/28/18 Current Visit: Yes Status: Chronic Qualifiers: Hypertension type: essential hypertension Qualified Code(s): I10 - Essential (primary) hypertension - Plan Acute kidney injury,resolved possible ATN had HD x2 Cr improving now proteinuria and rbc in urine Rf -ve, C3,C4 and hep panel -ve F/u SPEP, SOLOMON, ANCA and HIV Pt can be discharged today after dialysis catheter removal UTI Cont abx HTN controlled DM as per primary
[2018-11-05] MEDS ORDERED: NA CHLORIDE 0.9% 500 ML ONE (10:35)
[2018-11-05] MEDS ORDERED: FENTANYL CITR 100 MCG/2 ML ONE (11:37)
[2018-11-05] MEDS ORDERED: MIDAZOLAM HCL 2 MG/2 ML INJ ONE ×2 (11:37→12:32)
[2018-11-05] MEDS ORDERED: PROPOFOL 200 MG/20 ML VIAL IV ONE ×2 (11:37→12:31)
[2018-11-05] MEDS ORDERED: LIDOCAINE 2% MPF 5 ML VIAL ONE (11:38)
[2018-11-05] MEDS ORDERED: LIDOCAINE 1% MPF 30 ML VIAL ONE (12:15)
--- NOTE | 2018-11-05 12:35 | P.OP ---
Preoperative diagnosis: Removal of Tunnelled Hemodialysis Catheter Postoperative diagnosis: Removal of Tunnelled Hemodialysis Catheter Primary procedure: Removal of Tunnelled Hemodialysis Catheter Anesthesia: MAC + Local Estimated blood loss: <1cc Specimen: none Findings: no bleeding Complications: None Transferred to: Recovery Room Condition: Good
[2018-11-05 12:55] VITALS: O2SAT 97
[2018-11-05 13:05] VITALS: BP 101/67; TEMP 98.1
--- NOTE | 2018-11-05 13:07 | CON ---
Date of Consultation: 11/05/2018 SURGICAL CONSULT Reason For Consultation: Removal of tunneled hemodialysis catheter. 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 However, after several treatments and dialysis through a catheter placed by Dr. Roni del rosario this week, he has successfully recovered his kidney function and as such, the nephrology service feels that the patient no longer requires a tunneled hemodialysis catheter and as such, I have been c onsulted to remove this catheter. Past Medical History: Significant for nephrolithiasis status post left nephrectomy, hypertension, an d diabetes. Past Surgical History: Nephrectomy and placement of right IJ tunneled hemodialysis catheter. Social History: He smokes actively a pack per day or more. Denies alcohol. Denies recreational sejal g use. Allergies: TO METHYLPREDNISOLONE/METHYLPHENIDATE. Home Medications: Include tramadol only. Physical Examination: Vital Signs: At the time of my examination, his BMI is 20.7. His blood pressure is 130/72, pulse is 89, respiratory rate 20, and temperature 98.9. General: He is awake, alert, and oriented. Psychiatric: He is appropriate and conversive. HEENT: He is normocephalic. His sclerae are anicteric. His mucous membranes are moist. His oropha rynx is clear. There is a tunneled hemodialysis catheter in the right IJ position, which has no sign s of infection. Chest: Normal expansion and excursion. Cardiovascular: Regular rate and rhythm. Pulmonary: Clear to auscultation bilaterally. Abdomen: Soft. Extremities: No clubbing, cyanosis, or edema. Skin: Warm and dry. Laboratory Data: His last labs were on 11/03 revealed a white blood cell count of 13.5, hemoglobin i s 9.6, hematocrit of 29.2, and platelet count is 181. His last coagulation profile was on 10/27/2018 , had a PT of 12, INR 1.02. His chemistry from 11/03 showed a sodium 143, potassium 4.0, chloride 11 1, carbon dioxide 24, BUN 16, creatinine 2.04. His glucose was 116. Assessment And Plan: This is a 58-year-old male, with acute renal failure, who no longer requires di alysis. 1.Continue medical management. 2.I have explained the risks, benefits, and alternatives of removal of tunneled hemodialysis cathete r, including but not limited to bleeding, infection, damage to surrounding tissues, need for further operations or procedures. The patient agrees to proceed as indicated. Thank you for this interesting consult. ASHLEY/RAMSEY Voice ID: [id number] Report ID: [id number]
--- NOTE | 2018-11-05 13:27 | P.DS ---
Admission Date: 10/27/18 Discharge Date: 11/05/18 Disposition: ROUTINE DISCHARGE Discharge Condition: GOOD Reason for Admission: acute renal injury Consultations: Dr. Tamayo, General Surgery Dr. Franklin, Nephrology Dr. Morton, General surgery Procedures: 10/30/2018: HD tunnelled Hemosplit catheter placement 11/05/2018: HD tunnelled Hemosplit catheter removal. Brief History of Present Illness: Mr Hopkins is a 58 years old male with history of HTN, Nephrolithiasis, DM II, who start to feel weak and dizzy about 3 days ago. He has been complainin also of abdominal pain, in the lower area associated with nausea and vomiting. He states having fever. He denied cough or SOB. No chest pain either. In ER lab work was significantly abnormal, he has leukocytosis 18.6K with elevated procalcitonin with normal lactate. Hyperkalemia 5.5, hyponatremia 122, BUN 203, cratinine 19.8. His BP was on the lower side, the patient was alert and oriented without distress. No fever documented. Hospital Course: Patient was admitted for acute kidney injury. Nephrology was consulted, tunneled hemodialysis catheter was placed and patient underwent emergent hemodialysis. Since then, patient's kidney function has responded well. Prior to discharge, creatinine was 2.04 from the initial 19. Patient symptomatically improved. He was then cleared for discharge from nephrology standpoint without the need of outpatient dialysis. Tunneled HD catheter will be removed prior to discharge. Patient also had agitation which improved. Imaging negative for any acute abnormalities. Thyroid nodule, 11 mm, on the right. We will need outpatient thyroid ultrasound. Right upper lobe lung opacity, 9 mm, likely scarring. Repeat CT chest in 3 months. 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 We will need MRI to rule out malignancy as outpatient. Patient with a possible underlying psychiatric disorder. He will need outpatient follow up, referred to his primary care. Patient otherwise remained stable throughout the stay. No medication changes made on discharge. Patient was instructed to follow with Nephrology in 2 weeks. And his primary care physician in 1 week. Vital Signs/Physical Exam: Temp Pulse Resp BP Pulse Ox 98.1 F 72 16 101/67 98 11/05/18 13:03 11/05/18 13:03 11/05/18 13:03 11/05/18 13:03 11/05/18 09:59 General: Alert, In no apparent distress, Oriented x3 HEENT: Atraumatic, PERRLA, EOMI Neck: Supple, JVD not distended Respiratory: Clear to auscultation bilaterally, Normal air movement Cardiovascular: Regular rate/rhythm, Normal S1 S2 Gastrointestinal: Normal bowel sounds, No tenderness Musculoskeletal: No tenderness Integumentary: No rashes Neurological: Normal speech, Normal tone, Normal affect Lymphatics: No axilla or inguinal lymphadenopathy Laboratory Data at Discharge: WBC 13.5 K/uL (4.3-10.9) H 11/03/18 06:09 Hgb 9.6 g/dL (13.6-17.9) L 11/03/18 06:09 Hct 29.2 % (39.6-49.0) L 11/03/18 06:09 Plt Count 181 K/uL (152-406) 11/03/18 06:09 PT 12.0 SECONDS (9.5-12.5) 10/27/18 20:35 INR 1.02 10/27/18 20:35 Sodium 143 mmol/L (136-145) 11/03/18 09:15 Potassium 4.0 mmol/L (3.5-5.1) 11/03/18 09:15 BUN 16 mg/dL (7-18) 11/03/18 09:15 Creatinine 2.04 mg/dL (0.55-1.3) H 11/03/18 09:15 Glucose 116 mg/dL (74-106) H 11/03/18 09:15 Uric Acid 9.9 mg/dL (3.5-7.2) H 10/27/18 20:35 Phosphorus 3.0 mg/dL (2.5-4.9) 11/03/18 09:15 Magnesium 3.4 mg/dL (1.8-2.4) H 10/27/18 20:35 Total Bilirubin 0.5 mg/dL (0.2-1.0) 10/27/18 20:35 AST 4 U/L (15-37) L 10/27/18 20:35 ALT 16 U/L (12-78) 10/27/18 20:35 Alkaline Phosphatase 102 U/L (45-117) 10/27/18 20:35 Lipase 451 U/L (73-393) H 10/27/18 20:35 Patient Discharge Instructions: Please follow up with the primary care physician in 1 week. Please follow up with the campus administrative assistant in 2 weeks. Information provided to you. Please follow up with neurology in 1 month. Information provided to you. Please return to the emergency room for worsening symptoms. No new medications or medication changes at Diet: Renal Activity: Ad blair Followup: Deon Franklin MD [ACTIVE - CAN ADMIT] - 1-2 Weeks (Please call to make an appointment) Shreyas Reyes MD [ASSOCIATE-ACTIVE - CAN ADMIT] - 12/07/18 (Please call to make an appointment) Time spent managing pt's care (in minutes): 55
--- NOTE | 2018-11-05 23:34 | OP ---
Date of Procedure: 11/05/2018 Surgeon: Les Morton MD, Preoperative Diagnoses: Return of normal renal function and, as such, removal of tunneled hemodialys is catheter. Postoperative Diagnoses: Return of normal renal function and, as such, removal of tunneled hemodialy sis catheter. Procedure Performed: Removal of tunneled hemodialysis catheter. Anesthesia: MAC plus local with 1% lidocaine. Estimated Blood Loss: Less than 1 cc. Specimen: None. Findings: No bleeding. Complications: None. Disposition: Transferred to recovery room in good condition. Procedure In Detail: After informed consent was obtained, the patient was prepped and draped in the usual sterile fashion. After adequate anesthesia was achieved, the patient was positioned in head-do wn position. After appropriately anesthetizing the tract around the catheter, I mobilized the cuff u sing a hemostat and easily removed the catheter. It was sent off for pathologic examination. The pa tient was then taken out of Trendelenburg position. Pressure was held for 5 minutes by the clock, an d no bleeding was noted from the site. The area was copiously irrigated and closed with a single int errupted 2-0 nylon suture. Sterile dressing was placed overtop. The patient tolerated the procedure well without evidence of complication and was transferred to the PACU in good condition. All counts were correct at the end of the case. ASHLEY/RAMSEY Voice ID: [id number] Report ID: [id number]
== END 2018-11-05 14:11 | disposition home or self-care (01) | DRG 674 ==
LOC: ER 20:02 → ERHOLD 23:01 → 4TH 10-28 01:30
PROVIDERS: ADMIT Internal Medicine; ATTEND Family Medicine
PROC: 02HV33Z Insertion of Infusion Device into Superior Vena Cava, Percutaneous Approach (ICD-10-PCS; 2018-10-30)
PROC: B518YZA Fluoroscopy of Superior Vena Cava using Other Contrast, Guidance (ICD-10-PCS; 2018-10-30)
PROC: 5A1D70Z Performance of Urinary Filtration, Intermittent, Less than 6 Hours Per Day (ICD-10-PCS; 2018-10-30)
PROC: 0JH63XZ Insertion of Tunneled Vascular Access Device into Chest Subcutaneous Tissue and Fascia, Percutaneous Approach (ICD-10-PCS; principal; 2018-10-30 13:00)
PROC: 5A1D70Z Performance of Urinary Filtration, Intermittent, Less than 6 Hours Per Day (ICD-10-PCS; 2018-10-31)
PROC: 02PYX3Z Removal of Infusion Device from Great Vessel, External Approach (ICD-10-PCS; 2018-11-05)
DX: N17.9 Acute kidney failure, unspecified (principal); E87.1 Hypo-osmolality and hyponatremia; E87.2 Acidosis; E87.3 Alkalosis; N39.0 Urinary tract infection, site not specified; F20.0 Paranoid schizophrenia; E87.5 Hyperkalemia; N20.0 Calculus of kidney; E11.8 Type 2 diabetes mellitus with unspecified complications; I10 Essential (primary) hypertension; E86.9 Volume depletion, unspecified; Z90.5 Acquired absence of kidney; E11.65 Type 2 diabetes mellitus with hyperglycemia; Z79.4 Long term (current) use of insulin; E83.39 Other disorders of phosphorus metabolism; E83.41 Hypermagnesemia; D72.828 Other elevated white blood cell count; E04.1 Nontoxic single thyroid nodule; F17.210 Nicotine dependence, cigarettes, uncomplicated; Z91.19 Patient's noncompliance with other medical treatment and regimen; N28.89 Other specified disorders of kidney and ureter
CPT/HCPCS: 36415; 51702; 70450; 71045; 71250; 72125; 76000; 80048; 80069; 80076; 80307; 81003; 81015; 82140; 82533; 82550; 82553; 82570; 82805; 82962; 83520; 83605; 83690; 83735; 83880; 83930; 83935; 83970; 84132; 84145; 84156; 84165; 84300; 84443; 84484; 84550; 85025; 85610; 86021; 86038; 86147; 86160; 86225; 86317; 86430; 86704; 86706; 87040; 87086; 87088; 87340; 87389; 87522; 90935; 93005; 94640; 99285; C1752; J0610; J0696; J1610; J1630; J1644; J1650; J2250; J2370; J2405; J2543; J2704; J2930; J3010; J3411; J7030